=== PATIENT | female | born 1990 | race Caucasian/White ===

== ENCOUNTER 2022-08-08 08:54 | Outpatient (OUT) | payer BC, SELFPAY ==
[2022-08-08 09:41] LABS: Alanine Aminotransferase 26 U/L (14-59); Albumin Level 3.6 g/dL (3.4-5.0); Alkaline Phosphatase 96 U/L (46-116); Aspartate Amino Transferase 18 U/L (15-37); Bilirubin Direct 0.2 mg/dL (0.0-0.2); Bilirubin Total 0.8 mg/dL (0.2-1.0); Globulin 3.6 g/dL; Total Protein 7.2 g/dL (6.4-8.2)
== END 2022-08-08 08:55 ==
LOC: LAB 09:00
PROVIDERS: PCP Nurse Practitioner; Visit Provider Nurse Practitioner
DX: R94.5 Abnormal results of liver function studies (principal)
CPT/HCPCS: 36415; 80076

== ENCOUNTER 2022-10-05 07:54 | Outpatient (OUT) | payer BC, SELFPAY ==
--- NOTE | 2022-10-05 08:03 | MM_ITS ---
Patient: ZOE GROVE Exam Date: 10/05/2022 : 1990 Gender:F Ordering : Non-Staff Physician Admission #: [id number] Family : GERMANIA Taylor [employer] Order #: [id number] CLICK HERE TO VIEW EXAM RADIOLOGY REPORT PROCEDURE: MM TOMOSYNTHESIS DIAGNOSTIC BI, 10/05/2022, 08:06 US BREAST LT LIMITED, 10/05/2022, 09:03 COMPARISON: None. INDICATIONS: Breast Lump N83.21 Calculator Name NCI Breast Cancer Risk Assessment Tool 5 Year Breast Cancer Risk Not Applicable. Lifetime Breast Cancer Risk Not Applicable. Personal Breast Cancer No Personal Ovarian Cancer No Treatments None Family Cancers None LOCATION: [facility] BREAST COMPOSITION: Scattered areas fibroglandular density. FINDINGS: DIAGNOSTIC CATEGORY 1--NEGATIVE. RIGHT BREAST: No significant suspicious finding. LEFT BREAST: Skin surface marker localizes patient's palpable lump to the posterior upper-outer quadrant. No underlying mammographic abnormality. Ultrasound evaluation demonstrates normal appearing fibroglandular tissue. RECOMMENDATIONS: CLINICAL EVALUATION. PLEASE NOTE: A NORMAL MAMMOGRAM DOES NOT EXCLUDE THE POSSIBILITY OF BREAST CANCER. A CLINICALLY SUSPICIOUS PALPABLE LUMP SHOULD BE BIOPSIED. Dictated by: Shayan Matute M.D. on 10/05/2022 at 11:50 Approved by: Shayan Matute M.D. on 10/05/2022 at 11:57
== END 2022-10-05 07:55 | disposition home or self-care (01) ==
LOC: MAMMO 07:54
PROVIDERS: PCP Nurse Practitioner
DX: N63.21 Unspecified lump in the left breast, upper outer quadrant (principal)
CPT/HCPCS: 76642; 77066; G0279

== ENCOUNTER 2022-11-22 07:50 | Emergency (ER) | payer BC, SELFPAY ==
[2022-11-22] VITALS (19 sets, daily range): BP systolic 96–171; BP diastolic 59–103; PULSE 62–88; RESP 17–43; TEMP 36.4; O2SAT 96–100; BMI 42.2
--- NOTE | 2022-11-22 08:10 | ECG_ITS ---
The [facility] Test Date: 2022-11-22 Pat Name: ZOE GROVE Department: Room: - Gender: Female [employer]: : 1990 Requested By: CAROLINE MANCILLA Order Number: [id number] Reading MD: LAKISHA ALARCON Measurements Intervals [place] Rate: 69 P: 45 WV: 136 QRS: 81 QRSD: 96 T: 38 QT: 386 QTc: 404 Interpretive Statements 1100 Sinus rhythm 9110 normal ECG No previous ECG available for comparison Electronically Signed On 11-23-2022 6:54:44 EDT by LAKISHA ALARCON
--- NOTE | 2022-11-22 08:10 | XR_ITS ---
The [address] [address] Patient Name: ZOE GROVE MRN: [id number] date: 1990 Sex: F Assigned Patient Location: ER Current Patient Location: ER Accession/Order Number: [id number] Exam Date: 11/22/2022 08:20 Report Date: 11/22/2022 08:51 At the request of: BRAYDEN CH Procedure: XR chest 2V EXAM: Chest x-ray HISTORY: . cp . COMPARISON: None. TECHNIQUE: Frontal and lateral chest FINDINGS: Heart and vascularity are unremarkable. Lungs are free of focal infiltrates. No acute bony abnormality is appreciated. EKG leads overlie the chest. XR/XR chest 2V IMPRESSION: No acute heart or lung disease identified. Electronically authenticated by: JORGE LUIS FLORES Date: 11/22/2022 08:51
--- NOTE | 2022-11-22 08:11 | ED_ITS ---
HPI - General Adult General Chief complaint: Chest Pain Stated complaint: CHEST PAIN Time Seen by Provider: 11/22/22 08:10 Mode of arrival: walk-in History of Present Illness HPI narrative: Patient is a 32-year-old female who is presenting to the Emergency Room with multiple complaints and concerns. Patient has a neurology appointment in 2 weeks, patient has intermittent lightheaded, dizziness, and vertigo. Patient is on acetazolamide to help with normal pressure hydrocephalus. Patient had a spinal tap approximately one year ago, that was last time she any type of imaging of the brain. Patient has a trace tightness. Patient has mild nausea, no vomiting, no diarrhea. Patient has intermittent upper back pain. Patient has no vision or hearing changes. Patient was recommended to come to the Emergency Room by her nurse practitioner for evaluation. No other acute complaints at this time. Patient drove here. 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 No travel. . All systems are negative except as noted/marked. All systems reviewed and otherwise negative. . Nurses note and vital signs reviewed and patient is not hypoxic. General: The patient appears well and in no apparent distress. Patient is resting comfortably on cart. Patient is not toxic, lethargic, or listless Skin: Warm, dry, no pallor noted. There is no rash noted. No petechiae, purpura. Head: Normocephalic, atraumatic, no midline or paracervical tenderness to palpation. Full range of motion of cervical spinal no difficulty. Eye: Normal conjunctiva, no drainage, EOMI. PERRL Ears, Nose, Mouth, and Throat: oral mucosa is moist. Nares patent. Mouth without vesicles. Cardiovascular: Regular Rate and Rhythm, no murmur, gallop, rub Respiratory: Patient is in no distress, no accessory muscle use, lungs are clear to auscultation, no wheezing, rales or rhonchi Back: non-tender, no CVA tenderness bilaterally to percussion. No CT LS midline pain GI: soft, obese, no tenderness to palpation, no masses appreciated. No rebound, guarding, or rigidity noted. No flank pain bilateral, No distention Musculoskeletal: Patient has full range of motion of all of the extremities, no motor, sensory, or focal neurological deficits Neurological: A&O x3, normal speech Psychiatric: Cooperative Related Data Home Medications Medication Instructions Recorded Confirmed acetazolamide 250 mg tablet 250 mg PO QDAY 11/22/22 11/22/22 Allergies Allergy/AdvReac Type Severity Reaction Status Date / Time No Known Drug Allergies Allergy Verified 11/22/22 07:55 PFSH PFS Social History Smoking status: Never smoker Exam Constitutional Vital Signs, click to edit/add: Last Vital Signs Temp 97.6 F 11/22/22 07:55 Pulse 70 11/22/22 08:15 Resp 18 11/22/22 07:55 BP 115/59 11/22/22 08:15 Pulse Ox 100 11/22/22 07:55 Course Vital Signs Vital signs: Vital Signs Temperature 97.6 F 11/22/22 07:55 Pulse Rate 70 11/22/22 07:55 Respiratory Rate 18 11/22/22 07:55 Blood Pressure 115/59 11/22/22 07:55 Pulse Oximetry 100 11/22/22 07:55 Temperature 97.6 F 11/22/22 07:55 Pulse Rate 70 11/22/22 08:15 Respiratory Rate 18 11/22/22 07:55 Blood Pressure 115/59 11/22/22 08:15 Pulse Oximetry 100 11/22/22 07:55 Medical Decision Making MDM Narrative Medical decision making narrative: patient CT of the brain shows no signs of hydrocephalus. Patient's urine, labwork shows no significant findings. Patient's lightheaded and dizziness and headache have completely resolved.Patient's headache was not the worse headache of her life, not sudden onset, not thunderclap in nature. patient has a follow-up appointment with neurology in 2 weeks, she'll follow up with her PCP as well. Patient is sent home with a prescription for Antivert to use as needed. No questions at discharge Lab Data Lab results reviewed: Yes I reviewed the patient's lab results Labs: Lab Results 11/22/22 11/22/22 Range/Units 08:08 09:05 WBC 7.7 (4.0-11.0) 10^3/uL RBC 4.83 (4.20-5.40) 10^6/uL Hgb 15.2 (12.0-16.0) g/dL Hct 42.7 (36.0-48.0) % MCV 88.4 (81.0-99.0) fL MCH 31.5 (26.7-34.0) pg MCHC 35.6 H (29.9-35.2) g/dL RDW 12.0 (11.0-15.0) % Plt Count 320 (150-450) 10^3/uL MPV 9.8 (9.5-13.5) fL Neut % (Auto) 63.4 (43.0-75.0) % Lymph % (Auto) 28.2 (20.5-60.0) % [place] % (Auto) 5.2 (1.7-12.0) % Eos % (Auto) 2.3 (0.9-7.0) % Baso % (Auto) 0.5 (0.2-2.0) % Neut # (Auto) 4.9 (1.4-6.5) 10^3/uL Lymph # (Auto) 2.2 (1.2-3.8) 10^3/uL [place] # (Auto) 0.4 (0.3-0.8) 10^3/uL Eos # (Auto) 0.2 (0.0-0.7) 10^3/uL Baso # (Auto) 0.0 (0.0-0.1) 10^3/uL Abs Immat Gran (auto) 0.03 (0.00-0.03) 10^3/uL Imm/Tot Granulo (auto) 0.4 (0.0-0.5) % Sodium 141 (136-145) mmol/L Potassium 3.7 (3.5-5.1) mmol/L Chloride 106 (98-107) mmol/L Carbon Dioxide 21.9 (21.0-32.0) mmol/L Anion Gap 16.8 BUN 20.0 H (7.0-18.0) mg/dL Creatinine 0.79 (0.55-1.02) mg/dL Est GFR ( Amer) >60 (>=60) Est GFR (Non-Af Amer) >60 (>=60) BUN/Creatinine Ratio 25.3 Glucose 108 H (74-106) mg/dL Calcium 8.9 (8.5-10.1) mg/dL Total Bilirubin 0.7 (0.2-1.0) mg/dL AST 20 (15-37) U/L ALT 24 (14-59) U/L Alkaline Phosphatase 96 (46-116) U/L Troponin I High Sens <4.0 L (4.0-51.3) pg/mL Total Protein 7.3 (6.4-8.2) g/dL Albumin 3.8 (3.4-5.0) g/dL Globulin 3.5 g/dL Albumin/Globulin Ratio 1.1 Lipase 100.0 (73.0-393.0) U/L Urine Color Lt. yellow (YELLOW) Urine Clarity Slightly cloudy A (CLEAR) Urine pH 7.5 (5.0-9.0) Ur Specific [place] 1.010 (1.005-1.025) Urine Protein Negative (NEG/TRACE) mg/dL Urine Glucose (UA) Negative (NEGATIVE) mg/dL Urine Ketones Negative (NEGATIVE) mg/dL Urine Occult Blood Negative (NEGATIVE) Urine Nitrite Negative (NEGATIVE) Urine Bilirubin Negative (NEGATIVE) Urine Urobilinogen 0.2 (0.2-1.0) EU/dL Ur Leukocyte Esterase Negative (NEGATIVE) Urine RBC None seen (0-2) #/HPF Urine WBC 0-2 A (NONE SEEN) #/HPF Ur Squamous Epith Cells Moderate A (NONE/RARE) #/LPF Urine Crystals None seen (None Seen) #/HPF Amorphous Sediment Few Urine Bacteria None seen (NONE SEEN) #/HPF Urine Casts None seen (NONE SEEN) #/LPF Urine Mucus None seen (NONE SEEN) Ur Culture Indicated? No ECG Data Attestation: I personally reviewed and interpreted this ECG as follows: (EKG interpretation. Normal sinus rhythm at 69 beats a minute. Normal axis deviation. No acute ST elevation, no acute ectopy. Q waves throughout, QTC of 404.) Discharge Plan Discharge Chief Complaint: Chest Pain Clinical Impression: Headache, Atypical chest pain, Vertigo, Orthostatic dizziness Patient Disposition: Home, Self-Care Prescriptions / Home Meds: No Action acetazolamide 250 mg tablet 250 mg PO QDAY Instructions: Chest Pain (ED), Vertigo (ED), Acute Headache (ED), Lightheadedness (ED), Dizziness (ED) Additional Instructions: continue to increase fluids like you have then. Use Antivert as needed to help with vertigo A copy of your CAT scan report of ear brain has been given 2, no significant signs of hydrocephalus. Follow-up with neurology in 2 weeks, follow-up with PCP as well. Stand Alone Forms: Work/School Release, Portal Instructions Referrals: Inga Taylor [Primary Care Provider] - 1 week
[2022-11-22] MEDS: ONDANSETRON PF 4 MG/2 ML VIAL IV (08:20)
[2022-11-22] MEDS: 0.9 % SODIUM CHLORIDE 1,000 ML 1000 ML IV (08:23)
[2022-11-22 08:24] LABS: Basophils Percent Auto 0.5 % (0.2-2.0); Eosinophils Absolute Auto 0.2 10^3/uL (0.0-0.7); Eosinophils Percent Auto 2.3 % (0.9-7.0); Hematocrit 42.7 % (36.0-48.0); Hemoglobin 15.2 g/dL (12.0-16.0); Immature Granulocytes Abs Auto 0.03 10^3/uL (0.00-0.03); Immature Granulocytes Pct Auto 0.4 % (0.0-0.5); Lymphocytes Absolute Auto 2.2 10^3/uL (1.2-3.8); Lymphocytes Percent Auto 28.2 % (20.5-60.0); Mean Corpuscular HGB Conc 35.6 g/dL (29.9-35.2); Mean Corpuscular Hemoglobin 31.5 pg (26.7-34.0); Mean Corpuscular Volume 88.4 fL (81.0-99.0); Mean Platelet Volume 9.8 fL (9.5-13.5); Monocytes Absolute Auto 0.4 10^3/uL (0.3-0.8); Monocytes Percent Auto 5.2 % (1.7-12.0); Neutrophils Absolute Auto 4.9 10^3/uL (1.4-6.5); Neutrophils Percent Auto 63.4 % (43.0-75.0); Platelet Count 320 10^3/uL (150-450); Red Blood Count 4.83 10^6/uL (4.20-5.40); White Blood Count 7.7 10^3/uL (4.0-11.0)
[2022-11-22 08:35] LABS: Alanine Aminotransferase 24 U/L (14-59); Albumin Globulin Ratio 1.1; Albumin Level 3.8 g/dL (3.4-5.0); Alkaline Phosphatase 96 U/L (46-116); Anion Gap 16.8; Aspartate Amino Transferase 20 U/L (15-37); BUN Creatinine Ratio 25.3; Bilirubin Total 0.7 mg/dL (0.2-1.0); Calcium 8.9 mg/dL (8.5-10.1); Carbon Dioxide 21.9 mmol/L (21.0-32.0); Chloride 106 mmol/L (98-107); Estimated GFR (African America >60 (>=60); Estimated GFR (Non-African Ame >60 (>=60); Globulin 3.5 g/dL; Glucose 108 mg/dL (74-106); Potassium 3.7 mmol/L (3.5-5.1); Sodium 141 mmol/L (136-145); Total Protein 7.3 g/dL (6.4-8.2); Troponin I High Sensitivity <4.0 pg/mL (4.0-51.3)
[2022-11-22] MEDS: MECLIZINE HCL 12.5 MG TABLET 25 MG PO (08:38)
[2022-11-22] MEDS: ASPIRIN 81 MG TAB.CHEW 162 MG PO (08:38)
--- NOTE | 2022-11-22 09:05 | CT_ITS ---
The [address] [address] Patient Name: ZOE GROVE MRN: [id number] date: 1990 Sex: F Assigned Patient Location: ER Current Patient Location: ER Accession/Order Number: [id number] Exam Date: 11/22/2022 09:00 Report Date: 11/22/2022 09:17 At the request of: BRAYDEN CH Procedure: CT head/brain wo con EXAM: CT head/brain wo con HISTORY: normal pressure hydrocephalus, vertigo COMPARISON: None. TECHNIQUE: Axial noncontrast CT imaging of the head was performed with coronal and sagittal reformats. FINDINGS: Calvarium/skull base: No evidence of acute fracture or destructive lesion. Mastoids and middle ears demonstrate no substantial mucosal disease. Paranasal sinuses: No air fluid levels. Brain: No acute intracranial hemorrhage. No acute large vascular territory infarct. No mass lesion or mass effect. No hydrocephalus. CT/CT head/brain wo con IMPRESSION: 1. No acute intracranial process. 2. There is specifically no hydrocephalus seen. Please note normal pressure hydrocephalus would be atypical in this age group. Recommend correlation with clinical history. Electronically authenticated by: DONALD PEARCE Date: 11/22/2022 09:17
[2022-11-22 09:20] LABS: Bilirubin Urine NEGATIVE (NEGATIVE); Blood Urine NEGATIVE (NEGATIVE); Color Urine LT. YELLOW (YELLOW); Glucose Urine UA NEGATIVE (NEGATIVE); Ketones Urine NEGATIVE (NEGATIVE); Leukocyte Esterase Urine NEGATIVE (NEGATIVE); Nitrite Urine NEGATIVE (NEGATIVE); Protein Urine NEGATIVE (NEG/TRACE); Urobilinogen Urine 0.2 EU/dL (0.2-1.0); pH Urine 7.5 (5.0-9.0)
[2022-11-22 09:25] LABS: Clarity Urine SLIGHTLY CLOUDY (CLEAR)
[2022-11-22 09:27] LABS: Bacteria Urine NONE SEEN #/HPF (NONE SEEN); Crystals Seen? None Seen #/HPF (None Seen); Mucus Urine NONE SEEN (NONE SEEN); RBC Urine NONE SEEN #/HPF (0-2); Squamous Epithelial Cell Urine MODERATE #/LPF (NONE/RARE); WBC Urine 0-2 #/HPF (NONE SEEN)
[2022-11-22 09:28] LABS: Amorphous Sediment Urine FEW; Cast Seen? NONE SEEN #/LPF (NONE SEEN); Urine Culture Indicated NO
== END 2022-11-22 09:52 | disposition home or self-care (01) ==
PROVIDERS: Emergency Provider Emergency Medicine; PCP Nurse Practitioner
DX: R42 Dizziness and giddiness (principal); R51.9 Headache, unspecified; R07.89 Other chest pain
CPT/HCPCS: 36415; 70450; 71046; 80053; 81001; 83690; 83880; 84484; 85025; 85610; 93005; 96374; 99285

== ENCOUNTER 2022-12-14 16:09 | Outpatient (OUT) | payer BC, SELFPAY ==
[2022-12-14 16:40] LABS: Estimated Average Glucose 97 mg/dL
== END 2022-12-14 16:10 | disposition home or self-care (01) ==
LOC: LAB 16:10
PROVIDERS: PCP Nurse Practitioner; Visit Provider Nurse Practitioner
DX: R73.09 Other abnormal glucose (principal)
CPT/HCPCS: 36415; 83036

== ENCOUNTER 2023-04-18 07:58 | Outpatient (OUT) | payer BC, SELFPAY ==
--- OUTSIDE RECORDS SUMMARY | 2023-04-18 08:04 | XMS_ITS | CCD ---
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 Representative Name Role Phone SELF, REFERRED Referring Unavailable UNKNOWN, PHYSICIAN Primary Care Unavailable ROBIN HUGHES Attending Unavailable ROBIN HUGHES Admitting Unavailable MD Procedure Practitioner Unavailab LATRICIA Recinos Surgeon Unavailable MD Procedure Practitioner Unavailab ROBIN Zamora Surgeon Unavailable DR ARIEL LARKIN Admitting Unavailable CHAYA, DR GEORGE Consulting Unavailable DR ARIEL LARKIN Attending Unavailable GERMANIA TAYLOR Primary Care Unavailable NOLAN MAE Consulting Unavailable STEVE BARTHOLOMEW Admitting Unavailable STEVE BARTHOLOMEW Consulting Unavailable STEVE BARTHOLOMEW Attending Unavailable GERMANIA TAYLOR Primary Care Unavailable Brandon TREE FARMER, Inga Unavailable Unallocated, [facility] Provider Primary Care Provider INGA TAYLOR Attending Unavailable Allergies Allergy Classification Reported Allergen(s) Allergy Type Date of Onset Reaction(s) Facility (1 source) Honey Drug allergy (disorder) 11-19-2015 [facility] (1 source) Penicillin Drug Allergy [facility] (3 sources) Honey Allergy to substance 08-16-2022 Anaphylaxis [facility] (3 sources) Penicillin G Drug Allergy 08-16-2022 [facility] (3 sources) Wound Dressing Adhesive Drug Allergy 08-16-2022 [facility] Medications Current Medications Medication Drug Class(es) Dates Sig (Normalized) Sig (Original) acetaZOLAMIDE 250 mg oral tablet (3 sources) Carbonic Anhydrase Inhibitor acetaZOLAMIDE (Diamox) 250 MG tablet 2 (two) times a day. 0 Active B Complex Vitamins (B COMPLEX 1 PO) (3 sources) B Complex Vitami ns (B COMPLEX 1 PO) B Complex 0 Active loratadine 10 mg oral tablet (3 sources) loratadine (Claritin) 10 MG tablet Claritin 0 Active metFORMIN hydrochloride 500 mg oral tablet (3 sources) Biguanide take 1 tablet by mouth at mealtime metFORMIN (Glucophage) 500 MG tablet Take 1 tablet by mouth in the morning. Take with meals. 0 Active tiZANidine 4 mg oral tablet (4 sources) Central alpha-2 Adrenergic Agonist Start: 04-10-2023 End: 04-25-2023 tiZANidine (Zanaflex) 4 MG tablet Indications: Paresthesia of right upper extremity Take 1 tablet (4 mg) by mouth as needed at bedtime for muscle spasms for up to 15 days May start with 1/2 pill, increase to 1 pill if necessary. May cause drowsiness 15 tablet 0 04/10/2023 04/25/2023 Active End: 04-10-2023 take 1 tablet by mouth every six hours as needed tiZANidine (Zanaflex) 4 MG tablet Take 4 mg by mouth every 6 (six) hours if needed for muscle spasms 0 04/10/2023 Discontinued (Reorder) Completed/Discontinued Medications Medication Drug Class(es) Dates Sig (Normalized) Sig (Original) methylPREDNISolone (3 sources) Corticosteroid Start: 08-16-2022 End: 04-10-2023 methylPREDNISolone (Medrol Dospak) 4 MG tablets Indications: Swelling of left index finger Follow schedule on package instructions 21 tablet 0 08/16/2022 04/10/2023 Discontinued (Therapy completed) Start: 08-16-2022 methylPREDNISo lone (Medrol Dospak) 4 MG tablets Indications: Swelling of left index finger Follow schedule on package instructions 21 tablet 0 08/16/2022 Active traZODone hydrochloride 50 mg oral tablet (3 sources) Serotonin Reuptake Inhibitor End: 04-10-2023 take 2 tablets by mouth at bedtime traZODone (Desyrel) 50 MG tablet Take 2 tablets by mouth at bedtime 0 04/10/2023 Discontinued (Therapy completed) triamcinolone acetonide 0.055 mg/actuat metered dose nasal spray (3 sources) Corticosteroid End: 04-10-2023 take 2 spray(s) nasal route in the morning triamcinolone (Nasacort) 55 MCG/ACT nasal inhaler Administer 2 sprays into each nostril in the morning. 0 04/10/2023 Discontinued (Therapy completed) Problems Problem Classification Problem Date Documented Da te Episodic/Chronic Abdominal pain (3 sources) Unspecified abdominal pain; Translations: [UNSPECIFIED ABDOMINAL PAIN] Onset: 03-26-2022 Episodic Calculus of urinary tract (1 source) Calculus of ureter; Translations: [CALCULUS OF URETER] Onset: 03-28-2022 Episodic Diabetes or abnormal glucose tolerance complicating ; childbirth; or the puerperium (2 sources) Gestational diabetes mellitus; Translations: [Gestational diabetes mellitus in , unspecified control] Onset: 04-10-2023 04-10-2023 Episodic Headache; including migraine (4 sources) Chronic migraine without aura, not intractable, without status migrainosus; Translations: [CHR MIGR W/O AURA NOT INTRCT W/O SM] Onset: 05-06-2021 Chronic Other endocrine disorders (2 sources) Polycystic ovary; Translations: [Polycystic ovarian syndrome] Onset: 04-10-2023 04-10-2023 Chronic Other nervous system disorders (4 sources) Paresthesia of right upper limb; Translations: [Paresthesia of skin] Onset: 04-10-2023 04-10-2023 Episodic Other nutritional; endocrine; and metabolic disorders (4 sources) Body mass index 40+ - severely obese; Translations: [Body mass index (BMI) 45.0-49.9, adult] Onset: 04-10-2023 04-10-2023 Chronic Results Test Name Value Interpretation Reference Range Facility CBC AUTO DIFFon 03-26-2022 BASO # 0.0 103/ul Normal 0.0-0.1 Comment on above: Performed By: #### C BC #### [facility] [address] [place] [address] Dr. María Sosa Basophils/100 WBC (Bld) 0.6 % Normal 0.2-2.0 Comment on above: Performed By: #### C BC #### [facility] [address] [place] [address] Dr. María Sosa EO # 0.2 103/ul Normal 0.0-0.7 [facility] Comment on above: Performed By: #### C BC #### [facility] [address] [place] [address] Dr. María Sosa Eosinophils/100 WBC (Bld) 2.9 % Normal 0.9-7.0 Comment on above: Performed By: #### C BC #### [facility] [address] [place] [address] Dr. María Sosa Erythrocyte distribution width (RBC) [Ratio] 12.1 % Normal 11.0-15.0 Comment on above: Performed By: #### C BC #### [facility] [address] [place] [address] Dr. María Sosa Hematocrit (Bld) [Volume fraction] 37.4 % Normal 36.0-48.0 Comment on above: Performed By: #### C BC #### [facility] [address] [place] [address] Dr. María Sosa Hemoglobin (Bld) [Mass/Vol] 13.9 g/dL Normal 12.0-16.0 [facility] Comment on above: Performed By: #### C BC #### [facility] [address] [place] [address] Dr. María Sosa IG # 0.01 10e3/ul Normal 0.00-0.03 [facility] Comment on above: Performed By: #### C BC #### [facility] [address] [place] [address] Dr. María Sosa IG % 0.2 % Normal 0.0-0.5 [facility] Comment on above: Performed By: #### C BC #### [facility] [address] [place] [address] Dr. María Sosa LYMPH # 2.0 103/ul Normal 1.2-3.8 [facility] Comment on above: Performed By: #### C BC #### [facility] [address] [place] [address] Dr. María Sosa Lymphocytes/100 WBC (Bld) 30.8 % Normal 20.5-60.0 Comment on above: Performed By: #### C BC #### [facility] [address] [place] [address] Dr. María Sosa MANUAL DIFF REQ NO Normal [facility] Comment on above: Performed By: #### C BC #### [facility] [address] [place] [address] Dr. María Sosa MCH (RBC) [Entitic mass] 30.3 pg Normal 26.7-34.0 Comment on above: Performed By: #### C BC #### [facility] [address] [place] [address] Dr. María Sosa MCHC (RBC) [Mass/Vol] 37.2 g/dL Critically high 29.9-35.2 Comment on above: Performed By: #### C BC #### [facility] [address] [place] [address] Dr. María Sosa MCV (RBC) [Entitic vol] 81.7 fL Normal 81.0-99.0 Comment on above: Performed By: #### C BC #### [facility] [address] [place] [address] Dr. María Sosa MONO # 0.4 103/ul Normal 0.3-0.8 Comment on above: Performed By: #### C BC #### [facility] [address] [place] [address] Dr. María Sosa Monocytes/100 WBC (Bld) 5.3 % Normal 1.7-12.0 Comment on above: Performed By: #### C BC #### [facility] [address] [place] [address] Dr. María Sosa NEUT # 3.9 103/ul Normal 1.4-6.5 Comment on above: Performed By: #### C BC #### [facility] [address] [place] [address] Dr. María Sosa Neutrophils/100 WBC (Bld) 60.2 % Normal 43.0-75.0 Comment on above: Performed By: #### C BC #### [facility] [address] [address] [address] María Sosa Platelet mean volume (Bld) [Entitic vol] 9.2 fL Critically low 9.5-13.5 Comment on above: Performed By: #### C BC #### [facility] [address] [address] [address] María Sosa PLT 293 103/ul Normal 150-450 [facility] Comment on above: Performed By: #### C BC #### [facility] [address] [address] [address] María Sosa RBC 4.58 106/ul Normal 4.20-5.40 Comment on above: Performed By: #### C BC #### [facility] [address] [place] [address] Dr. María Sosa WBC 6.6 103/ul Normal 4.0-11.0 [facility] Comment on above: Performed By: #### C BC #### [facility] [address] [place] [address] Dr[address] María Sosa CT ABD/PELVIS WO CONon 03-26 CT ABD/PELVIS WO CON CLINICAL HISTORY: Left flank pain. Low back pain, urinary retention. EXAMINATION: Unenhanced CT scan of the abdomen and pelvis: 03/26/2022. COMPARISON: None. TECHNIQUE: 3 mm axial images from lung bases through ischial tuberosities without intravenous or oral contrast were obtained. Sagittal, coronal reconstructions were performed. CT dose reduction technique was used, including Automated Exposure Control. FINDINGS: The visualized lung bases, cardiac, posterior mediastinal structures seem normal. The heart size seems normal. CT ABDOMEN: The liver, spleen, gallbladder, pancreas, adrenal glands, kidneys appear normal. There is no hydronephrosis, nephrolithiasis or perinephric fat stranding. The abdominal aorta has normal caliber. There is no retroperitoneal or mesenteric adenopathy. The small and large bowel loops are of normal caliber. There is normal appendix. CT PELVIS: There are tubal occlusion devices involving the fallopian tubes as well as the corpora the uterus appropriately positioned. Uterus, ovaries appear normal. The bladder is normal. There is no definite ureterolithiasis. There are a few calcified phleboliths within the pelvis. I doubt these represent a distal ureteral calculi. However the calcified density on the left could represent a calculus at the left ureterovesicular junction measuring 4 mm. No significant hydronephrosis or hydroureter is seen. There is no pelvic adenopathy. There are no focal fluid collections. The visualized osseous structures seem normal. IMPRESSION: 1. 4 mm calculus at the left ureterovesical junction or a calcified phlebolith without significant hydroureter or hydronephrosis of the left kidney. Similar 3 mm density seen on the right without significant hydronephrosis or hydroureter on the right. 2. Normal appendix. 3. The ovaries are normal for CT examination. Electronically authenticated by: NOLAN MAE Date: 2022-03-26 10:12 Normal [facility] ER URINE PROFILEon 3 Bilirubin Ql (U) Negative Normal NEGATIVE [facility] Comment on above: Performed By: #### U MICRO, ERUR, PREGU #### [facility] [address] [place] [address] Dr. María Sosa Clarity (U) CLEAR Normal CLEAR Comment on above: Performed By: #### U MICRO, ERUR, PREGU #### [facility] [address] [place] [address] Dr. María Sosa Color (U) LT. YELLOW Normal YELLOW [facility] Comment on above: Performed By: #### U MICRO, ERUR, PREGU #### [facility] [address] [place] [address] Dr. María GRAMAJOAHJon A micrscopic examination will be performed if indicated. Normal [facility] Comment on above: Performed By: #### U MICRO, ERUR, PREGU #### [facility] [address] [place] [address] Dr. María Sosa Glucose Ql (U) Negative Normal NEGATIVE [facility] Comment on above: Performed By: #### U MICRO, ERUR, PREGU #### [facility] [address] [place] [address] Dr. María Sosa Hemoglobin Ql (U) TRACE-INTACT Abnormal NEGATIVE [facility] Comment on above: Performed By: #### U MICRO, ERUR, PREGU #### [facility] [address] [address] [address] María oSsa Ketones Ql (U) Negative Normal NEGATIVE [facility] Comment on above: Performed By: #### U MICRO, ERUR, PREGU #### [facility] [address] [place] [address] Dr. María Sosa LEUKOCYTES Negative Normal NEGATIVE Comment on above: Performed By: #### U MICRO, ERUR, PREGU #### [facility] [address] [place] [address] Dr. María Sosa Nitrite Ql (U) Negative Normal NEGATIVE [facility] Comment on above: Performed By: #### U MICRO, ERUR, PREGU #### [facility] [address] [place] [address] Dr. María Sosa pH (U) 6.0 [pH] Normal 5-9 Comment on above: Performed By: #### U MICRO, ERUR, PREGU #### [facility] [address] [place] [address] Dr. María Sosa SPEC GRAVITY <=1.005 Abnormal 1.005-<=1.025 [facility] Comment on above: Performed By: #### U MICRO, ERUR, PREGU #### [facility] [address] [place] [address] Dr. María Sosa UA PROTEIN Negative Normal NEGATIVE/ TRACE Comment on above: Performed By: #### U MICRO, ERUR, PREGU #### [facility] [address] [place] [address] Dr. María Sosa UR MICRO IND INDICATED Normal Comment on above: Performed By: #### U MICRO, ERUR, PREGU #### [facility] [address] [place] [address] Dr. María Sosa Urobilinogen Qn (U) 0.2 {[place]and[place]'U}/dL Normal 0.2 - 1.0 Comment on above: Performed By: #### U MICRO, ERUR, PREGU #### [facility] [address] [place] [address] Dr. María Sosa URon 03-26-2022 , QUAL Negative Normal NEGATIVE [facility] Comment on above: Performed By: #### U MICRO, ERUR, PREGU #### [facility] [address] [place] [address] Dr. María Sosa PROF CHEM 8 (BAS METB)on Anion gap [Moles/Vol] 15.5 mmol/L Normal Comment on above: Performed By: #### B MP #### [facility] [address] [place] [address] Dr. María Sosa Calcium [Mass/Vol] 8.6 mg/dL Normal 8.5-10.1 [facility] Comment on above: Performed By: #### B MP #### [facility] [address] [place] [address] Dr. María Sosa Chloride [Moles/Vol] 107 mmol/L Normal 98-107 [facility] Comment on above: Performed By: #### B MP #### [facility] [address] [place] [address] Dr. María Sosa CO2 [Moles/Vol] 24.1 mmol/L Normal 21.0-32.0 [facility] Comment on above: Performed By: #### B MP #### [facility] [address] [address] [address] María Sosa Creatinine [Mass/Vol] 0.67 mg/dL Normal 0.55-1.02 [facility] Comment on above: Performed By: #### B MP #### [facility] [address] [place] [address] Dr. María Sosa EGFR-AF BOLIVIAN >60 Normal >=60 [facility] Comment on above: Performed By: #### B MP #### [facility] [address] [place] [address] Dr. María Sosa EGFR-NON AF BOLIVIAN >60 Normal >=60 Comment on above: Performed By: #### B MP #### [facility] [address] [address] [address] María Sosa Glucose [Mass/Vol] 107 mg/dL Critically high 74-106 [facility] Comment on above: Performed By: #### B MP #### [facility] [address] [address] [address] María Sosa Potassium [Moles/Vol] 3.6 mmol/L Normal 3.5-5.1 Comment on above: Performed By: #### B MP #### [facility] [address] [address] [address] María Sosa Sodium [Moles/Vol] 143 mmol/L Normal 136-145 [facility] Comment on above: Performed By: #### B MP #### [facility] [address] [address] [address] María Sosa Urea nitrogen [Mass/Vol] 11.0 mg/dL Normal 7.0-18.0 Comment on above: Performed By: #### B MP #### [facility] [address] [address] [address] María Sosa Urea nitrogen/Creatinin e [Mass ratio] 16.4 mg/mg Normal Comment on above: Performed By: #### B MP #### [facility] [address] [address] [address] María Sosa URINE MICROSCOPIC ONLYon BACTERIA NONE SEEN Normal NONE SEEN Comment on above: Performed By: #### U MICRO, ERUR, PREGU #### [facility] [address] [address] [address] María Sosa Bacteria identified Cx Nom (U) NOT INDICATED Normal Comment on above: Performed By: #### U MICRO, ERUR, PREGU #### [facility] [address] [address] [address] María Sosa CAST NONE SEEN Normal NONE SEEN Comment on above: Performed By: #### U MICRO, ERUR, PREGU #### [facility] [address] [address] [address] María Sosa Crystals LM Nom (Urine sed) NONE SEEN Normal NONE SEEN [facility] Comment on above: Performed By: #### U MICRO, ERUR, PREGU #### [facility] [address] [address] [address] María Sosa Epithelial cells LM Ql (Urine sed) FEW Abnormal NONE SEEN /RARE [facility] Comment on above: Performed By: #### U MICRO, ERUR, PREGU #### [facility] [address] [place] [address] Dr. María Sosa MUCOUS TRACE Abnormal NONE SEEN [facility] Comment on above: Performed By: #### U MICRO, ERUR, PREGU #### [facility] [address] [place] [address] Dr. María Sosa RBC 2-5 Abnormal 0-2 [facility] Comment on above: Performed By: #### U MICRO, ERUR, PREGU #### [facility] [address] [place] [address] Dr. María Sosa WBC NONE SEEN Normal NONE SEEN [facility] Comment on above: Performed By: #### U MICRO, ERUR, PREGU #### [facility] [address] [place] [address] Dr. María Sosa CT Abdomen/Pelvis w/ Contras ton 03-24-2022 CT Abdomen/Pelvis w/ Contrast COMPARISON: None TECHNIQUE: Contiguous axial CT sections of the abdomen and pelvis were obtained after IV contrast administration of 100 mL of Iopamidol, Isovue-300. Sagittal and coronal reformats have been obtained. All CT scans at this facility use dose modulation, iterative reconstruction, and/or weight based dosing when appropriate to reduce radiation dose to as low as reasonably achievable. FINDINGS Lung bases:Visualized lung bases show no significant pathology Liver: The liver is normal in size and enhancement. There are no focal solid or cystic lesions. There is no intra or extrahepatic bile duct dilatation. Gallbladder: No calcified gallstones. Normal gallbladder wall. No pericholecystic fluid. Spleen: There are no focal lesions or calcifications in the spleen. There is no splenomegaly Pancreas: The pancreas is normal in size and attenuation without focal lesions or dilatation of the pancreatic duct. Adrenal glands are negative. Kidneys: There are no solid renal lesions. There are prompt bilateral nephrograms after IV contrast administration with prompt excretion into nondilated collecting systems. There is no hydroureter. Bowel: There is no bowel dilatation or evidence of diverticulitis. Appendix: The appendix is unremarkable. Nodes: No lymphadenopathy. Aorta: There is no abdominal aortic aneurysm. Peritoneum: No free fluid or free air. Pelvis: The uterus is within normal limits. There are clips in pelvis consistent with previous tubal ligation. The urinary bladder is within normal limits. Abdominal wall: The abdominal wall is intact. Bones :There are no acute osseous changes. Soft tissues: The soft tissues are unremarkable. IMPRESSION: No acute intra-abdominal changes. Report reported and signed by ANKSUH MALLOY on 03/24/2022 [address] [facility] Specialist XR Knee Complete Left*on XR Knee Complete Left* COMPARISON: NONE. 4 views LEFT KNEE FINDINGS: There are no lytic or sclerotic bone lesions. There is no acute fracture or subluxation. The joint spaces are preserved. The patella is within normal limits. The soft tissues are within normal limits, there are no radiopaque foreign bodies.. IMPRESSION: There are no acute osseous changes. Report reported and signed by ANKUSH MALLOY on 11/23/2021 [address] [facility] Specialist PAP [id number] 07-08-2021 Cytology report Cyto stain Doc (Cvx/Vag) Note Invalid Interpretation Code [facility] Comment on above: Result Comment: TEST S RESULT FLAG UNITS REF RANGE LAB Clinician Provided Cytology Information Source.............Cervix No. of containers..01 ThinPrep Vial DIAGNOSIS: 01 NEGATIVE FOR INTRAEPITHELIAL LESION OR MALIGNANCY. Specimen adequacy: 01 Satisfactory for evaluation. Endocervical and/or squamous metaplastic cells (endocervical component) are present. Performed by: 01 Navin Whitfield Assistant Professor Of Physics (ASCP) . 01 Note: Note 01 The Pap smear is a screening test designed to aid in the detection of premalignant and malignant conditions of the uterine cervix. It is not a diagnostic procedure and should not be used as the sole means of detecting cervical cancer. Both false-positive and false-negative reports do occur. Test Methodology: Note 01 This liquid based ThinPrep(R) pap test was screened with the use of an image guided system. FLAG LEGEND: L-Low Normal,H-High Normal,LL-Alert Low,HH-Alert High <-Panic Low,>-Panic High,A-Abnormal,AA-Critical Abnormal Performed at: [address] [place] [address] Noelle Platt MD, Performed By: #### 1 [id number] #### [facility] [address] [place] [id number] HPV 16+18+31+33+35+39+ 45+51+52+56+58+59+ 66+68 DNA Probe+sig amp Ql (Cvx) Negative Invalid Interpretation Code Negative [facility] Comment on above: Result Comment: This nucleic acid amplification test detects fourteen high-risk HPV types (16,18,31,33,35,39,45,51,52,56,58,59,66,68) without differentiation. Performed at: [facility] [id number] MD Giulia Drake Performed at: =[address] [id number] MD Giulia Drake Performed By: #### 1 [id number] #### [facility] [address] [place] [address] Coding Summary.on 07-07-2021 Coding Summary. CD:[id number] G h0bWw+PGhlYWQ+ZD0WAFU rU64wnBJjbJ3DV9vOQC3N VQXNYTRXGK1BMF4msGJ4A YrgM6HymfZd SouhgHWdQI81ULs3FQZ3a PzpFXttkU8ksRJqQ4u5Zu LtSP81dC48WAcyBOPoUrV 3LjZpbjsgbWFy A0yvWkPviTSiBrw+PHRhY mxlIHdpZHRoPScxMDAlJy OqhObrMO8vNq8jZNWsIOM vbGxhcHNlOiBj e4awSYRqUXhrJR9kgLjlP 5DadQP0AAKdr1h0Hn48dL I+WQMxVGQ9lTjyFPuej33 2MfCap1oeWCO5 mWSbGVlqLJN7B83zp2L1H BPuDRVtUJL7dVS3pP1qrC yenupkX1GksSWmIpG6KWB 3iJJesX3jlTwg xnzpnQ6aMjr+H23SWP9NA NMOYJ0MCwc7F0YsKkpohJ I+YF31GDBpHQ97sEEkrOR jx7layCh2RjKg MNOqACI0lCnfKIgvl8VdL SFsL30goTXvl8Z7KPSskD arxXQtPxBiaKO8pW6hLOc uwsapl8xnhdyo Pflae5zade39eA44D29jS QwpHTJoXAR9BQInEMJusU wbsd0wtN1wLf3+VUaao3x qt7xntKl2BwYh GUDgiqOsjZmsPVT9j5EzD j87W7NsgMsjw8AiXtb4tw 53qOTyj6I8aYX4YUhzVLX veK0vRYceBuD9 GTUeFdBnrG52vEKrQOhoT s1yxUeqsQslIS9qMFTqaz lzAMLqeM4mASRepKQfqSg xIT5bFBSexefo k326QpBbXEN2DLMqqUArB 1ZmfI5xDmJwCUSmUSZaD0 NwfAJwDFodL013BFglEkF 3DJGidhKlP8Lj NLGwiDmzRgU0z3J9Hu0Pt 0HpaerwLIB1YJbqEXQ7Kn IsFaFiDcG4C5WvAlz6UZU zyAmkQD5gI8Om GOYqdygbiyltyGX3QLUrB DDcgU69nWPxUUqaNl9zd2 Y5p055CNReTNBpqT72Ts9 udDogMTBwdCBU iF7grgqph1padnctFfOtM QJvUGq9WYc4MXKybLkkHj VcHMJ8DcF1ECU4gVGsoE2 pqEnfllsbwI7u Oyc+J81gbO8dEAF8AQX6l lyhROLrinNeUQ13VE86Y6 RyPjwvdGFibGU+PGRpdiB tsDsuYD3pNdMl b0beb1SoBQmzJ1QhUZNqX XfdAuv1QUQxQLB6cHX3sN 5xJCXjTSrtl6V8fED1M3B byrZxqq2cs7ej OKFiJPzoJ51xsBDyi0H4X JLcfMZ7DRQehNbmKwAyqH 93Oyc+CJNmbBunr3ZxPlu mq7eap2xmbXt7 KiOwNWLdpuBcoJexXVJ9w 9VwQl30K73cSFxpXDZuUZ YsKTWbPONmyPtctc3xlE6 wIi8+PGNvbCB3 hQJ3oT4fNOAeTcE8ZGutL 885AkPxoRFaSwddj8red4 qyhCu1DqIvBRAxyiQmcVm jCUM9b5ScZl61 B46zJVgsHYIrEIOhUCZoM PStdUsdnk8hlY1nOm6+PC 5wu4ifib69kS28bPL+PHR nASY7vOovLAza NLMrnG9oDWdyGfP8LKSnZ wStcG53qHJpOCrrTi4orE wwkCkyOU5pEEAaqexoj30 0DxVih8avTERj iNFcSGnjQXY9P19id4U6F DWrOCXfSAL0zUW1iV8tuG lnbjogbGVmdDsgdmVydGl wFQncBHklD544 IHRvcDsnPlBhdGllbnQgT jEhDQd8Q5JsQrj7FUAjcO pyPL9beGEbEQzbAx7lnDu rbGgvCO8mJQOv uezhz148RuZuv6cdARIsx JDmWKxzDQE0Y73hx9N7ZM EkSWKyXZC7zTB4kL7nuKx nbjogbGVmdDsg jsEfiXuwTNreBQecE535X HRvcDsnPkJpcnRoIERhdG A1AG95LC73dXIuh0I1pXL 7C1RoLXVvrhmw cdsorTZ4UNYoUUEdvO55K v1yeJydRq5yILLdRWJ7YF MwwLAiC6YucC0nTlKxXLM xDOOnX1XfdXYh VDcxC558GHckIhQ7MLFhe cImA8TpNQIprKanMyO6b4 B8Fq0SS6F8ZF26ME27oUH en6M7vDQ9I2Jp CHPdnxnalpxydDV7IIGcL OTxhG90Lj7hgHmvId0vIX TaLPJ1QPTkjNXiZ7FbsL2 yOiAjMDAwMDAw X9PjxBQkLFetA267SDjuU pA7CAXmypDmO3WoIVUheM spFlW2r1D7Nf1IVLx2FH6 6HB07uCGhc5R2 bTJ4G0XwXOGhsvhdgefji TS4BQAsDKKpoF01Ls7rfQ lbLa7oRMAoANJ6ILLhoTQ nD4LqnZ0eGkEz GQAiUPKzX5UyhFGjOCokJ 284ODdpIxJ5HMKltkBhO8 ZtQCGdnLnmSgY5q7A8On5 LXASwIJ54EDA8 vLL8HX43CO07J6BxQuxtj GFibGU+PHRhYmxlIHdpZH RoPScxMDAlJyBzdHlsZT0 pCy7sCHRyJFLs pAvhcPFfOxMgb0qhFFNpA QkcOX4bfLoaW5ZhdOB7GQ Tnj8l4Xh48M55tU0AkkJY +VBDtrUX3iNX4 jC6hCnIePkA7OGmrB363T xNzsXOlDgpwr1dck6xrcP b9HhL3DSGablWiwXxeDZB 8g7PvGo51E88m IHdpZHRoPSIxNSUiIHZhb Akihi6dcU4aMg8+PGNvbC F5kTL1dF3lSqHtIdM3VDl qV942XeNfoIEn Ojxxx5mfz4phtDe1AnArB QYrycMkaQeaIXO9y9BkPx 32I4HsxAujn0OrClb4pe1 3rHDki8A8aCY8 X0MsJKLobjhphODwbTjgL F1pHEKoefegFTEtoV7bOF HwF5n5VfEsAfQ7DOkjY6U btdH3UNPdnVFm OWrrPLI6C16wp2Y4SXSdS TEyYYD9lVH4fP0nnHxvfc ogbGVmdDsgdmVydGljYWw vRBnqJ374POHl fOjlAEUmnW1yTKFfjJJrf WlrFP0aWOQddjpjGomKYY lCVovdISKIEGSYCA41WM8 7eMNay4J6wMV9 K1CsTNCdvqkjkicinOS2I HHsTVXlhW05gJOySIfdHb 5db8K2p594ANYrCHUiyT0 5Xa9uaThhUJXs dYNDhC2iegnkf0bpajcbV mMpNARyVLh1GCq7XLSlqJ kaBoGbODT7BsT5NFC1sAG reE7paLowvuje cO7zVvw+RGRbKoUkYCk9Y TwvdGQ+HQJvRYD1xOyuTS ofKRHibM8zMSJuR7r7IuX uKdI9TXinS7Yp EVQeidlnOc96pD4yFrYzW kS4MQwxV3LtuhG0NZYofR HtPZycLZA2C49mn8Q9YPP qUGOlQEX3lEM1 sP9oiEzjpvlenMJgjFupe qWpvNdjOHrhVPwiR120IB RvcDsnPjMwIFllYXJzPC9 8TL95xBKcp0G0 rFA4F2KfQMSvjkxvqrhpw WI1KPTnANMugK88lROdPS lxOv2kb5L1z540TXGiCJV wkK75Ej7boCdy NBKwsMEYmZ9avggxp4jng vwtIoQpGBCeDPc8SOm8YX OltDpxSqDfMIR8VfZ1MJW 4wNIptY4tzMew yyvmkG5lHga+RmVtYWxlP F52FW75qVKxy6O6iDS2V7 LsUAQejalktkxxjZM5GSE nWFFvvA68oEWm KIffCm0uq9Q1r834SPAcE TWyvY94Mq2aeTefSPCbbC AQcM0linrok3qgfdcpOjH lXNRcPAb3ITx2 XQWnoLzgNrGnZJZ3IxR9V PM9cFMsrO7yoJaifntzfT 9wOyc+GCJcYZTsh0Jir0K rRE81EE91Z0Ax PjwvdGFibGU+PHRhYmxlI HdpZHRoPScxMDAlJyBzdH mzKA9mYq6iMBEgPYEtxKs lmPTmDmUwd5wm YWPlMStmEZ8ifKpzY1Jrf LN6HDZdf9n2Qx33C42rR0 JvdXA+BDQefRQ2hGJ8uT4 gEvEzQhP3EAha M148QvYixHDiEeurt9zwo 0ygeVr3PtVzUBEdzbXdzJ fgPJM9e2AfNc57K65nMUd pZHRoPSIyMCUi GVWnlSmhbz2hnI1nLz2+P XVlfBZ7xHC4rX7tXuQzNe A3EFztO400QlKbdVCuNcz gS98tX4YmiQJ+ JIMsHlv4RFOeiFklMO9eh HPxQCowMo2sPXU3MeKaAq TxPQfaH2PxFMNyrtexnqq kkWS0SSHzKGRz oG17Fj5pqTypRo7xOVNaX EI0GRCvoVMcU1FycE3eQq XvOEVwCJJvQ5MjdRGmQYx uA142TPoaSjL4 HCMbbkUpH7GgZZJtuUsvC wT5g8C3Dv7SwMcyiOZcZK 6jBnMsZWa5H1RnHib5AUB hsTnuRC4ifOKx LUhpYq5adQyiaIipEA9fR MSljypfd797YnHij7ymRE XesLLfYAjiUNO5Q59da1X 5PNShOJKxDYG3 xRM6yS6gtDdpmdujiONnd DsgdmVydGljYWwtYWxpZ2 74OVPdiKluVmCZGbi0N7I rIdc1JLTjfCiv AB0urVDxMJgqBg3dsYegj NghWZ4yKSBzsxwwi730Jc Vur7zvELQlyFDpHFxlGET 9S05ot4R5CUEq MRHkQII6iPT5wF4dfZpoj jogbGVmdDsgdmVydGljYW eiQFudR332QMTswXupZk6 BYbb4P9QjPts9 QLFmcEeiNW1dgDXiOFbyT b5hnNmexReqMD0vZZVyrr dlg783UyNql8gbOLHogOR dSVgbNOY8V59q t6J9IJGaITGhZTK8eMX8r B5prWyerifpiPMbzUthvz PoeIvvKZfbQFocW282CUN vcDsnPlBheWVy OjwvdGQ+DJ84ad79G2ZzT zrtKzg2WRTgBGY6zYA2uP 8vSBKaSCwan2V1eDT1E4Z qzfYmyt6yu4ip YXBz (more content not included)... Normal [facility] PAP [id number] 07-01-2021 Gynecological Body Site CERVIX Normal [facility] Comment on above: Performed By: #### 1 [id number] #### [facility] Laboratory [address] [place] [address] Physician Orderon 07-01-2021 Physician Order [id number]# 1.00CD:127 Normal [facility] Coding Summary.on 06-07-2021 Coding Summary. CD:[id number] G h0bWw+PGhlYWQ+HV7GGFD uJ89wxJDjaN2BU6lSBB5T YSRLDDTSQS1UPK6sgIW4R TrxX1QtsrTz TqhpoQPiBK84SRk4EAQ8m FclHNcbjZ2toDGjD9c5Vn ZhNO67jX79PYekSGKiXgI 3LjZpbjsgbWFy B0dfNkPgnKUlDxg+PHRhY mxlIHdpZHRoPScxMDAlJy XiuRtbTR7oLj7tIHOzWIR vbGxhcHNlOiBj h4mqPVIzOBskBA7moKycB 3CmkIF4LWKqx4v3Xy75kZ I+YFQjRSI1iEmqKUmbr25 6HkFob7bnBAB7 qBGtGTlbTMD6N55fx3V0Y PClUPGlIJN1zGX7yS4roJ whbdinP1VdxXNeTnF8OIY 0cZZbgT5fxNpe eqimiT7iHpa+Y99SWN9UW IBCUW7LUoy0Z1QcNjkceG I+QB64ZGZzCE13fHMvcCR xz5nggLs7ZqUj TEFkHNT3pDnxXPvoq6EoQ VPsO60xvLEtv1I0DGLwxF dbkMUsHnEqtFE4hO0bBAe kzjobz6efxikn Gaouw8qdsf87tS52X56sW EtoPACfSOE2UWBlNRGqtG xcen8jzC5wFg6+QFjlv1j ra0aakVg1EcOb BACpxpBygGjdSXP7j0MmF z56W4JikDfrs0KqTqz6yl 85jXZhn5E2jXB6MHmnRTZ vhO7vGRstNdI0 TOBlCoXynL30mGPfVXdwE l2ubGzyqBsvVE9oZAZwmv pqEFHqoX8gHKTnkGNssKo rJW9wVZKiucyf k767MhCiOBA8TAApiUFzH 9ApjP2nCeKgUUNkFJQdH4 KnjXReRLeqK998AKxuSkR 1GQJvvaAgD3Of ZPIxgMucZhN9s2A1Pc2Vc 8KckwybLPK6EOipDMR4Sf MqZyNsMxU4Q6NkQvi1ZLH leEamEY4bB3Ey PWAvrwejnelbzLE8IYPdU OQabL97wNOcFPkoBg1vh8 R7y926XNGrMHDuyS46Fm9 udDogMTBwdCBU wI3kszqck5dqmmwhCaKvG IBtDXv3VCl8CUNaeWghYj JdVLY6SnO8ZMQ7iYBonS5 xsGttmpeexJ2b Oyc+G48mjX2iWIC4UJT7q ukyRSCvrpAtWW84KI18Y2 RyPjwvdGFibGU+PGRpdiB dxGcmQE6xIuPr z4bqz9WqGNibL0PhKYCvY GqsRph1TFCiOWK7nAX0yK 8eEMMrWDjie0C3kBW8U2J usvFdhk1xg2ij WMTzHVknZ22jzYLmq1C4H RXlvJW3PDEbpMpiHvNwgH 93Oyc+FCHgeMyff7KiQvc gm5gwp6srbDz0 JpTuFYRlctCbjDwbRMH2j 8VyMy76R45mIMvwTYQvEY GjRBMoWFOoaIcgxc6usK2 wIi8+PGNvbCB3 iVM0nE7xEXPeHxI4RFvwK 522KkXsqNVbSyvag2hvb7 fneYf4FqFfWBYzwsDkvPh yUMT9j2IdKy31 Y96fMEksKDIbXAOeBHDxY WUxeKerdd1ykM0lAr6+PC 1hq2vrwe31hQ00vFE+PHR eAXE0bHdfPYvb PPVzzW9nKZxySrG2YUPxY kVefT46rRIgMEwwQz6kxR tmyInrIH8pZPVukaymg33 3PfTty8ynOYZb gPQmAOibVDS6D71nz1H0E LDeSKTdYYZ9eNH4vI9syI lnbjogbGVmdDsgdmVydGl cEGraWKynY475 IHRvcDsnPlBhdGllbnQgT gYrUCc6Z8QaBjz0JJInrQ yiUK5nmBQkHJxsRl0siUg kgNvhBH8qRRRz xrjmj764VaMqy3bzRGJbz UEbQHzbFYK0U86tw1N0WE VrPTDsCXG9pSX3iY6nkMb nbjogbGVmdDsg yzUhsWhsVRmdXVpsC849V HRvcDsnPkJpcnRoIERhdG J7ZK54CE01xVPiz2M1gHQ 0P0LfUFPnhbif ynlszAH2BIEfIBWkzR76M b3ekRqwBx4oQWJuDTW5AC CxqSDyL0OthR2yDbBjXPI hLGDxQ6BzpJVr DDcqG754RJlaLmB5AEEfp lHxL4XpHKUpkDotPaG7l3 E6Du4JG2Y1SS15RB99hPX if8T5bKT5B9Ad ZCQgajgkmueyfIX2USOrU BJvwS84Jn8zpQteUv7rXY EkYQM3BEYejTFsK1MapA2 yOiAjMDAwMDAw U6GbpSHgBQmvI611QYdnP zC4QZPmlzKiN5PtSPElpK iiJyI6p6H1Pn4DYRf9VT2 1QW43dXBjf7Q8 pCU4B9QnLGUvgrkbxcabs VO9NJVoLEJraQ39Hf0mdW ucTt7tTHPxRER7XVAbfNT sU4JxlI7cBfYx AGPtZUPfK4EpvIAwJCkiP 347COgfWyL7OVJfkpJcR7 LkJLPwlLnbUjS6c6D7Jx0 YMXLdUJ81IKW1 bHN4UE12YQ69G4LmBsxcp GFibGU+PHRhYmxlIHdpZH RoPScxMDAlJyBzdHlsZT0 cVj5eOGMiKVEp tQqloVJkCoAzt7vnMCRtE OqdOC9nrNubS0XgnBN3JD Qfs2b9Lo71E63yY4HtoWR +UHEwhBM4hSB5 qJ7xUcJxFfX6DUtmN191U vNizFDeHtbkn4yux7cslJ d9SzW9JZRkbyQxuKjrFQT 7z8XaPf04C42b IHdpZHRoPSIxNSUiIHZhb Mgtqi7nrA3gMz0+PGNvbC A9wUW0wI4fFnTjNxE3EJa vO282LbKlnJFu Ysiol0ubi4syfUj3EzIsO POzrcRxfIptVOD5s2KzPn 87C4ZinUcla9HxIcp5ez8 5jMIih8X2kAD9 H1HxCUCinoqlxOHjzLcrU H6mTGVthmmwMQAtyS6iMO OsS8f4KtYaHvO0JIyhX5N qicZ1EOLsxVSa HZybVET7W73nu3O3TYYoW TXjERM6kFT3iA2rkLregf ogbGVmdDsgdmVydGljYWw yDRsjO607XMMh rDgaFEQgnR2iDVOnfUBxv LntFI1mMWVxdrqjYpzYMT wNIzzpHNHKCZICWQ67PH6 7gJEff3X7fZQ0 D1LhHBVtfjcnfdsniKW1F HTxSCBxoP49mYSaMIsbEt 5yx5D5v168VWEpUNBeaZ7 8Ub4gzOtpUCQs oKVJwQ6twviqw0srjlqiU xRqYHQxVQa6AOy4TCNrnQ ozIdNaIJP7ZrK0WNS6iKP aaX6soErxzgnf gF7aXle+BVVvMyBdTWs3U TwvdGQ+GVCeYBP5aKwzFJ usEKPyxK4oQDHsJ2p1IaP wAeP7IHkoG7Pn PFAhqjhaIe24pS3oRrTvN jH8RWuaY3TosfO4HWDqfY VqCDjuTZN0K68pf1M2CIC cZCXtFQI9bNR5 tO8mcPhlxwxchRVrgKpgu oUgzLuvVTscMZeiZ794QN RvcDsnPjMwIFllYXJzPC9 8JK76rOWxq4P0 cPW6V2DnAYGhiinmsrikb SI1MCCkFFUckU32wWXjHJ cjBi9nv4P4m257RLZjRIO jeD59Th6kdDsa CQAxkOFBeX8xcfccs2zml cjfScFbRDPlJQx2USl7AN VqkDkrKhOnFSV9JnC8SWT 7zVXheD8tsOop qfdybZ3rEzt+RmVtYWxlP P33XP77uJRxd5L7qHV6Z8 GmMZFxzgdjvuzklRG8DUQ yWRNeoU99vZPy NPfhYj0qk3P6j522SVDiI MUrkK29Vd7fySzbNIVjiK RYpQ3ebljhv9vvvrzgIbF lOEUsBOt4PSw4 YXTrvVscXgYhCLZ9FaI7D XF2aKJeqB4lxWdydaiafH 9wOyc+GDRwJOWzw0Dbp9E wOC20TB44L0At PjwvdGFibGU+PHRhYmxlI HdpZHRoPScxMDAlJyBzdH vhKV5wPg1xXWKqDTHylAu whERfWaLgg5pq KTRiNJagJC2oyVqoZ0Pns HX3QUQpd3u2Bd81E51uJ4 JvdXA+FYSvwNM4pRC7uF6 iPyAaPnK6OSng C937FiYzzVWgMewcl6dpj 4sudZc3MfGwNBCfglIioP mtONA9u7UzMk25N12hIAn pZHRoPSIyMCUi BRFqoKljub0kkM8rQb5+P ASnwMO9nOD8dC7sAhXgLm R7AYtjM384QgFihNOcRge gH79pR6DwbZA+ ZECcZyu3TPKsuLhnUJ7no QJaYDetXh6dFLO8DxSuBn WbZKvvL4HzHBEsrenevzu mdNR9IHLnIZLu qF81Fn7azZelVn5mETHrU KA6PTGbyVEoC6TleU4hSy IdTDMgYEGrN6EesGTiXEt lK832MJyiEhI9 OSXnwxYqT2JiHMUgaKjcV qO7t8I7Co6PqUfgdYUfJR 7wHzRiAIf7C0VsBvq5JPH ohQqbBS5xmKUl GPelVi7tpCauiBwzXS4oO NNyvjxoi403VdGoj9skUU TtaMFlTTuyORX1A82vm5Q 2JZCtFGZlTZH3 cSB6qD9ebDoxtmybyBPkf DsgdmVydGljYWwtYWxpZ2 13RJUigPaoDbTVZcm2N8D xEeo2HZAafMik YF7meTBhVAvfFr3vnFqum UxdKI3uCUNcqifnl633Iw Sla0otDPAlxJJuZPcuNWE 4B79cc1S6FYBn CZZbJLX4rUO6eY7npPatj jogbGVmdDsgdmVydGljYW mjBAvsX847PXUfwEuqKi9 DBml5D2YaDpu5 DBWixPlnLF3cxRWjWEmaB q4joRxujRbnLN9sBDEuji vlx188IlGsh0xdZGIniRN oNChsEIL8W93v a4E3XCNkBWJuEVO9jAT0u X3tvJfppupfwVHhiCokfc PhyOkrTLmtOFarD615CAV vcDsnPlBheWVy OjwvdGQ+SD62sv22H2ZaL ahaUew5DTBuEKP7mIT0rV 8tKYCgGPcqg5A6jAT6C2B likEkax4ed4ke YXBz (more content not included)... Normal [facility] CSF Cell Counton 05-26-2021 Clarity (CSF) CLEAR Normal [facility] Comment on above: Performed By: #### 2 [id number] #### [facility] Laboratory [address] [place] [address] Color (CSF) Colorless Normal [facility] Comment on above: Performed By: #### 2 [id number] #### [facility] Laboratory [address] [place] [address] RBC Auto (CSF) [#/Vol] 12 High <=0 [facility] Comment on above: Performed By: #### 2 [id number] #### [facility] Laboratory [address] [place] [address] Tube Num CSF 3 Invalid Interpretation Code [facility] Comment on above: Performed By: #### 2 [id number] #### [facility] [address] [place] [address] WBC CSF 4 cells/mcL Normal 0-5 [facility] Comment on above: Performed By: #### 2 [id number] #### [facility] Laboratory [address] [place] [address] Clarity (CSF) CLEAR Normal [facility] Comment on above: Performed By: #### 2 [id number], [id number] #### [facility] Laboratory [address] [place] [address] Color (CSF) Colorless Normal [facility] Comment on above: Performed By: #### 2 [id number] #### [facility] [address] [place] [address] RBC Auto (CSF) [#/Vol] 96 High <=0 [facility] Comment on above: Performed By: #### 2 [id number] #### [facility] [address] [place] [address] Tube Num CSF 1 Invalid Interpretation Code [facility] Comment on above: Performed By: #### 2 [id number] #### [facility] [address] [place] [address] WBC CSF 3 cells/mcL Normal 0-5 [facility] Comment on above: Performed By: #### 2 [id number], [id number] #### [facility] [address] [place] [address] CSF Glucoseon 05-26-2021 Glucose (CSF) [Mass/Vol] 58 mg/dL Normal 46-70 [facility] Comment on above: Performed By: #### 2 [id number], [id number] #### [facility] [address] [place] [address] CSF Proteinon 05-26-2021 Protein (CSF) [Mass/Vol] 21.0 mg/dL Normal 14.0-45.0 [facility] Comment on above: Performed By: #### 2 [id number], [id number], [id number] #### [facility] Laboratory [address] [place] [address] Physician Orderon 05-26-2021 Physician Order [id number]# 1.00CD:127 Normal [facility] CBC AUTO DIFFon 05-06-2021 BASO # 0.1 103/ul Normal 0.0-0.1 Comment on above: Performed By: #### C BC #### [facility] [address] [place] [address] Dr. María Sosa Basophils/100 WBC (Bld) 0.7 % Normal 0.2-2.0 Comment on above: Performed By: #### C BC #### [facility] [address] [place] [address] Dr. María Sosa EO # 0.2 103/ul Normal 0.0-0.7 Comment on above: Performed By: #### C BC #### [facility] [address] [place] [address] Dr. María Sosa Eosinophils/100 WBC (Bld) 2.4 % Normal 0.9-7.0 Comment on above: Performed By: #### C BC #### [facility] [address] [place] [address] Dr. María Sosa Erythrocyte distribution width (RBC) [Ratio] 12.6 % Normal 11.0-15.0 Comment on above: Performed By: #### C BC #### [facility] [address] [place] [address] Dr. María Sosa Hematocrit (Bld) [Volume fraction] 40.2 % Normal 36.0-48.0 Comment on above: Performed By: #### C BC #### [facility] [address] [place] [address] Dr. María Sosa Hemoglobin (Bld) [Mass/Vol] 14.2 g/dL Normal 12.0-16.0 Comment on above: Performed By: #### C BC #### [facility] [address] [place] [address] Dr. María Sosa IG # 0.02 10e3/ul Normal 0.00-0.03 Comment on above: Performed By: #### C BC #### [facility] [address] [place] [address] Dr. María Sosa IG % 0.3 % Normal 0.0-0.5 Comment on above: Performed By: #### C BC #### [facility] [address] [place] [address] Dr. María Sosa LYMPH # 2.4 103/ul Normal 1.2-3.8 Comment on above: Performed By: #### C BC #### [facility] [address] [place] [address] Dr. María Sosa Lymphocytes/100 WBC (Bld) 34.4 % Normal 20.5-60.0 Comment on above: Performed By: #### C BC #### [facility] [address] [place] [address] Dr. María Sosa MANUAL DIFF REQ NO Normal [facility] Comment on above: Performed By: #### C BC #### [facility] [address] [place] [address] Dr. María Sosa MCH (RBC) [Entitic mass] 30.9 pg Normal 26.7-34.0 Comment on above: Performed By: #### C BC #### [facility] [address] [place] [address] Dr. María Sosa MCHC (RBC) [Mass/Vol] 35.3 g/dL Critically high 29.9-35.2 [facility] Comment on above: Performed By: #### C BC #### [facility] [address] [place] [address] Dr. María Sosa MCV (RBC) [Entitic vol] 87.4 fL Normal 81.0-99.0 Comment on above: Performed By: #### C BC #### [facility] [address] [place] [address] Dr. María Sosa MONO # 0.4 103/ul Normal 0.3-0.8 [facility] Comment on above: Performed By: #### C BC #### [facility] [address] [place] [address] Dr. María Sosa Monocytes/100 WBC (Bld) 5.9 % Normal 1.7-12.0 [facility] Comment on above: Performed By: #### C BC #### [facility] [address] [place] [address] Dr. María Sosa NEUT # 3.9 103/ul Normal 1.4-6.5 [facility] Comment on above: Performed By: #### C BC #### [facility] [address] [place] [address] Dr. María Sosa Neutrophils/100 WBC (Bld) 56.3 % Normal 43.0-75.0 [facility] Comment on above: Performed By: #### C BC #### [facility] [address] [place] [address] Dr. María Sosa Platelet mean volume (Bld) [Entitic vol] 9.5 fL Normal 9.5-13.5 [facility] Comment on above: Performed By: #### C BC #### [facility] [address] [place] [address] Dr. María Sosa PLT 325 103/ul Normal 150-450 [facility] Comment on above: Performed By: #### C BC #### [facility] [address] [place] [address] Dr. María Sosa RBC 4.60 106/ul Normal 4.20-5.40 [facility] Comment on above: Performed By: #### C BC #### [facility] [address] [place] [address] Dr. María Sosa WBC 7.0 103/ul Normal 4.0-11.0 [facility] Comment on above: Performed By: #### C BC #### [facility] [address] [place] [address] Dr. María Sosa PROTIMEon 05-06-2021 INR Coag (PPP) [Relative time] 1.00 {INR} Normal [facility] Comment on above: Performed By: #### P T, PTT #### [facility] [address] [place] [address] Dr. María Sosa INR GUIDELINES SEE BELOW Normal [facility] Comment on above: Result Comment: ARLETTE RED INR: 2.0 - 3.0 CONDITIONS NOT LISTED BELOW 2.5 - 3.5 FOR PROSTHETIC HEART VALVE REPLACEMENT 2.5 - 3.5 RECURRENT THROMBOSIS Performed By: #### P T, PTT #### [facility] [address] [address] [address] María Sosa PT Coag (PPP) [Time] 10.8 s Normal 9.0-11.6 [facility] Comment on above: Performed By: #### P T, PTT #### [facility] [address] [place] [address] Dr. María Sosa PTTon 05-06-2021 aPTT Coag (Bld) [Time] 28.7 s Normal 22.3-36.2 Comment on above: Performed By: #### P T, PTT #### [facility] [address] [place] [address] Dr. María Sosa MR cervical spine wo conon 0 03-18-2021 MR cervical spine wo con [facility] [place] [address] MRI Report Signed Patient: Zoe Goddard MR#: [id number] : 1990 Acct:[id number] Age/Sex: 31 / F ADM Date: 03/18/21 Loc: [facility] Room: Type: [facility] Attending Dr: Homero Erickson DO Ordering Provider: Juan Carlos Erickson DO Date of Service: 03/18/21 MR/MR cervical spine wo con: [id number] Copies to: Juan Carlos Erickson DO MR cervical spine wo con 03/18/2021 2:48 PM SIGNS AND SYMPTOMS: Neck pain, stiffness, tension headaches PROTOCOL: Multiplanar multisequence MR images of the cervical spine were obtained without contrast. COMPARISON: None. FINDINGS: There is straightening of the normal cervical lordosis. The bones are in anatomic alignment. There is preservation of vertebral body heights and intervertebral disc spaces. The marrow signal is within normal limits. The cord is normal in signal. No epidural or paraspinous fluid collection is appreciated. The visualized paraspinous soft tissues are within normal limits. The prevertebral soft tissues are within normal limits. Incidental note is made of flattening of the pituitary within the sella. This is atypical for the patient's age. Correlation with any clinical signs of intracranial hypertension is recommended. At C2-C3: There is a normal disc, central canal, and neural foramen. At C3-C4: There is a normal disc, central canal, and neural foramen. At C4-C5: There is a normal disc, central canal, and neural foramen. At C5-C6: There is a normal disc, central canal, and neural foramen. At C6-C7: There is a normal disc, central canal, and neural foramen. At C7-T1: There is a normal disc, central canal, and neural foramen. MR/MR cervical spine wo con IMPRESSION: There is straightening of the normal cervical lordosis which may be positional or secondary to muscle spasm. No cord signal abnormality or cord compression. No significant spinal canal or neural foraminal narrowing. Incidental note is made of flattening of the pituitary within the sella. This is atypical for the patient's age. Correlation with any clinical signs of intracranial hypertension is recommended. Impression dictated by: Fitz Rapp M.D.03/18/2021 3:59 PM Dictation Location: [place] [address] Transcribed By: [facility] 03/18/21 1559 Dictated By: Fitz Rapp II, MD 03/18/21 1556 Signed By: 03/18/21 1559 [facility] Vital Signs Date Time Vital Sign Value Performing Clinician Whitley villalobos 04-10-2023 18:43-0500 Body height 165.1 cm Inga Taylor NP Work Phone: [facility] 04-10-2023 18:43-0500 Body mass index (BMI) [Ratio] 46.46 kg/m2 Inga Taylor NP Work Phone: [facility] 04-10-2023 18:43-0500 Body temperature 97.11 [degF] Inga Matsonjamari [employer] Work Phone: [facility] 04-10-2023 18:43-0500 Body weight 126.64 kg Inga Brandon [employer] Work Phone: [facility] 04-10-2023 18:43-0500 Diastolic blood pressure 76 mm[Hg] Inga Brandon [employer] Work Phone: [facility] 04-10-2023 18:43-0500 Heart rate 75 /min Inga Brandon [employer] Work Phone: [facility] 04-10-2023 18:43-0500 Respiratory rate 20 /min Inga Brandon [employer] Work Phone: [facility] 04-10-2023 18:43-0500 SaO2% (BldA) [Mass fraction] 98 % Inga Brandon [employer] Work Phone: [facility] 04-10-2023 18:43-0500 Systolic blood pressure 98 mm[Hg] Inga Huyenbecolinz [employer] Work Phone: [facility] Healthcare Encounters Encounter Date Encounter Type Care Provider Facility Start: 04-10-2023 End: 04-10-2023 ambulatory INGA TAYLOR Not Available Start: 04-10-2023 End: 04-10-2023 Office outpatient visit 25 minutes Inga Taylor [employer] Work Phone: [facility] Comment on above: Paresthesia of right upper extremity (Primary Dx); BMI 45.0-49.9, adult ([facility]) Start: 04-10-2023 Bamboo flowsheet Inga Taylor [employer] Work Phone: [facility] Start: 04-10-2023 Bamboo flowsheet Inga Taylor [employer] Work Phone: [facility] Start: 03-26-2022 End: 03-26-[address] ARIEL LARKIN Facility:[facility] Start: 05-06-2021 End: 05-07-2021 ambulatory STEVEFARSHAD BARTHOLOMEW Facility:[facility] Start: 07-31-2018 End: 08-01-2018 ambulatory REFERRED SELF Facility:[facility] Procedures Date Procedure Procedure Detail Performing Clinician Start: 08-01-2018 Therapeutic prophyla ctic/dx injection subq/im ROBIN Kay ELLEN Start: 07-31-2018 Emergency department patient visit LATRICIA AGUIRRE Start: 07-31-2018 Ther proph/dx njx iv push single/1st sbst/drug LATRICIA AGUIRRE Plan of Treatment Date Care Activity Detail Author Start: 05-01-2023 End: 05-01-2023 Patient encounter procedure 05/01/2023 6:40 PM EST Office Visit [facility] [address] [place] [phone] Inga Taylor, [employer] [address] [place] [phone] [facility] Start: 04-10-2023 End: 04-10-2023 Patient encounter procedure 04/10/2023 6:40 PM EST Office Visit [facility] [address] [place] [id number] Inga Taylor, [employer] [address] [place] [phone] [facility] Comment on above: Arrived Start: 04-10-2023 End: 04-10-2024 XR Cervical spine 2 or 3 Views XR cervical spine 2 or 3 views Imaging Routine Paresthesia of right upper extremity Expected: 04/10/2023 (Approximate), Expires: 04/10/2024 [facility] Work Phone: Comment on above: Expected: 04/10/2023 (Approximate), Expires: 04/10/2024 Start: 04-10-2023 End: 04-10-2024 XR Shoulder - right 2 Views XR shoulder 2+ views right Imaging Routine Paresthesia of right upper extremity Expected: 04/10/2023 (Approximate), Expires: 04/10/2024 [facility] Comment on above: Expected: 04/10/2023 (Approximate), Expires: 04/10/2024 Payers Date Payer Category Payer Unknown BCBS BCBS [id number] [id number] 2021-Present [phone] [address] [place] [address] [id number] 1990 Unknown [id number] 1990 Unknown [id number] 1990 Unknown [id number] 1990 Unknown [id number] 1958 Unknown [id number] Unknown [id number] Social History Date Type Detail Facility Start: 08-16-2022 Tobacco smoking status NDIS Never sm oked tobacco [facility] Start: 08-16-2022 Tobacco use and exposure Smoke less tobacco non-user [facility] Start: 04-09-2023 End: 04-10-2023 Alcohol intake Ex-drinker (finding) [facility] Start: 09-15-2022 End: 04-10-2023 [facility] of [facility] Start: 09-15-2022 End: 04-10-2023 Humiliation, Afraid, Rape, and Kick questionnaire [HARK] [facility] Within the last year , have you been afraid of your partner or ex-partner? No [facility] How often do you att end restorationism or quaker services? Patient refused [facility] Are you now , , , , never or living with a partner? [facility] How often to you hav e a drink containing alcohol? Monthly or less [facility] How many standard dr inks containing alcohol do you have on a typical day? 1 or 2 [facility] How often do you hav e 6 or more drinks on 1 occasion? Never [facility] How hard is it for y ou to pay for the very basics like food, housing, medical care, and heating Not very hard [facility] Do you feel stress - tense, restless, nervous, or anxious, or unable to sleep at night because your mind is troubled all the time - these days [OSQ] Only a little [facility] (I/We) worried wheth er (my/our) food would run out before (I/we) got money to buy more. Never true [facility] Start: 04-09-2023 Alcohol Comment social [facility] Start: 1990 Sex Assigned At Not on file [facility] History of Present illness Narrative 04-10-2023 Inga Taylor NP - 04/10/2023 7:52 PM Quoc Taylor NP - 04/10/2023 7:52 PM ZAINAB CARRILLO - 04/10/2023 6:40 PM Quoc Taylor NP - 04/10/2023 6:40 PM EST Note Date & Type Note Facility 04-10-2023 History of Presen t illness Narrative Associated Problem(s): BMI 45.0-49.9, adult ([facility]) Consider Yolanda or Javier, pt will research these and discuss at fu appt in 3 weeks Associated Problem(s): Paresthesia of right upper extremity Not a clear etiology wether cervical or shoulder Check xrays, add muscle relaxers Fu in 3 weeks and go from there Right shoulder pain for the last 15 years has gotten worse in the last two years. Causing numbness down to the elbow and sometimes to the hand. No injury that pt can think of. Pain usually comes and goes but the pain has been more constant lately waking her in the middle of the night. Pt takes tylenol if it gets worse but does not help much. Pt would like to discuss the metformin Images from the original note were not included. Zoe Goddard is a 33 y.o. female presents with chief complaint of No chief complaint on file. HPI: Also frustrated with lack of weight loss, is physically active most days of the week at the gym, also low to no carbs Trialed many diets What else to do?? Shoulder Pain The pain is present in the right shoulder. This is a chronic problem. The current episode started more than 1 year ago. There has been no history of extremity trauma. The problem occurs constantly. The problem has been gradually worsening. The quality of the pain is described as aching, burning and sharp. The pain is moderate. Associated symptoms include numbness and tingling. Pertinent negatives include no fever. The symptoms are aggravated by activity. She has tried nothing for the symptoms. Neck Pain This is a chronic problem. The current episode started more than 1 year ago. The problem occurs daily. The problem has been gradually worsening. The pain is associated with nothing. The pain is present in the right side. The quality of the pain is described as aching, burning, stabbing and shooting. The pain is moderate. Nothing aggravates the symptoms. Associated symptoms include numbness and tingling. Pertinent negatives include no chest pain, fever, headaches, pain with swallowing or trouble swallowing. She has tried nothing for the symptoms. SUBJECTIVE: MEDICATIONS: Current Outpatient Medications Medication Instructions acetaZOLAMIDE (Diamox) 250 MG tablet 2 times daily B Complex Vitamins (B COMPLEX 1 PO) B Complex loratadine (Claritin) 10 MG tablet Claritin metFORMIN (Glucophage) 500 MG tablet 1 tablet, Oral, Daily with breakfast methylPREDNISolone (Medrol Dospak) 4 MG tablets Follow schedule on package instructions traZODone (Desyrel) 50 MG tablet 2 tablets, Oral, Nightly triamcinolone (Nasacort) 55 MCG/ACT nasal inhaler 2 sprays, Each Nostril, Daily ALLERGIES: Allergies Allergen Reactions Honey Anaphylaxis Other Reaction(s): Hives when on skin Penicillin G Other Reaction(s): hives Wound Dressing Adhesive Other Reaction(s): Blisters, Swelling, Hives REVIEW OF SYMPTOMS: Review of Systems Constitutional: Positive for unexpected weight change. Negative for appetite change, chills and fever. HENT: Negative for congestion, ear pain, sore throat and trouble swallowing. Eyes: Negative for pain, discharge, redness and visual disturbance. Respiratory: Negative for cough, shortness of breath and wheezing. Cardiovascular: Negative for chest pain, palpitations and leg swelling. Gastrointestinal: Negative for abdominal pain, blood in stool, constipation, diarrhea, nausea and vomiting. Genitourinary: Negative for difficulty urinating, dysuria and frequency. Musculoskeletal: Positive for arthralgias and neck pain. Negative for back pain, joint swelling and myalgias. Skin: Negative for rash and wound. Neurological: Positive for tingling and numbness. Negative for dizziness, tremors, seizures, syncope and headaches. Psychiatric/Behavioral: Negative for behavioral problems, self-injury and suicidal ideas. The patient is not nervous/anxious. Hematological: Does not bruise/bleed easily. Endocrine: Negative for polydipsia, polyphagia and polyuria. Allergic/Immunologic: Negative for environmental allergies and food allergies. PAST MEDICAL HISTORY Past Medical History: Diagnosis Date Accumulation of fluid in tissues Allergic rhinosinusitis Anemia, mild At low risk for fall Chronic neck pain Constipation in female COVID-19 Deep dyspareunia Family history of breast cancer GDM (gestational diabetes mellitus) Hammer toe of right foot Increased intracranial pressure Influenza vaccination declined Insomnia Migraine (CMS/HCC) Morbid obesity with BMI of 40.0-44.9, adult (CMS/HCC) Nonsmoker Pain in both knees, unspecified chronicity PCOS (polycystic ovarian syndrome) Preeclampsia induced hypertension Vaginal odor Vertigo Past Surgical History: Procedure Laterality Date CT ANGIOGRAM HEART CORONARY 08/02/2018 CT ANGIOGRAM TAVR DILATION AND CURETTAGE D & C within 30 minutes of vaginal delivery for retained placents HYSTEROSCOPY 05/31/2017 Hysteroscopy, Essure bilateral tubal ligation, IUD removal MD UPPER ARM/ELBOW SURGERY UNLISTED Procedure: Left arm surgery 2 metal plates 14 screws family history includes Breast cancer in her mother; Diabetes in her father; Hypertension in her father; Ovarian cancer in an other family member; Uterine cancer in an other family member. OBJECTIVE: Visit Vitals BP 98/76 (BP Location: Left arm, Patient Position: Sitting, BP Cuff Size: Large adult long) Pulse 75 Temp 97.1 F (Temporal) Resp 20 Ht 5' 5 Wt 279 lb 3.2 oz SpO2 98% BMI 46.46 kg/m OB Status Having periods Smoking Status Never BSA 2.41 m Physical Exam Constitutional: General: She is not in acute distress. Appearance: Normal appearance. HENT: Head: Normocephalic and atraumatic. Right Ear: External ear normal. Left Ear: External ear normal. Nose: Nose normal. Mouth/Throat: Mouth: Mucous membranes are moist. Eyes: Extraocular Movements: Extraocular movements intact. Conjunctiva/sclera: Conjunctivae normal. Cardiovascular: Rate and Rhythm: Normal rate and regular rhythm. Pulses: Normal pulses. Heart sounds: Normal heart sounds. Pulmonary: Effort: Pulmonary effort is normal. Breath sounds: Normal breath sounds. Abdominal: General: Bowel sounds are normal. There is no distension. Palpations: Abdomen is soft. There is no mass. Tenderness: There is no abdominal tenderness. Musculoskeletal: Cervical back: Normal range of motion and neck supple. Comments: +tight/tender right trap region Near full cervical ROM as well as right shoulder DTR's 2+ bilat UE , -tinels and phalens bilat No tenderness right elbow and has full ROM Hand grasps=bilat Rotator cuff strength 5/5 bilat UE Skin: General: Skin is warm and dry. Capillary Refill: Capillary refill takes 2 to 3 seconds. Findings: No rash. Neurological: General: No focal deficit present. Mental Status: She is alert and oriented to person, place, and time. Psychiatric: Mood and Affect: Mood normal. Behavior: Behavior normal. Thought Content: Thought content normal. Judgment: Judgment normal. ASSESSMENT AND PLAN: No follow-ups on file. Problem List Items Addressed This Visit BMI 45.0-49.9, adult (CMS/HCC) Paresthesia of right upper extremity - Primary Relevant Medications tiZANidine (Zanaflex) 4 MG tablet Other Relevant Orders XR cervical spine 2 or 3 views XR shoulder 2+ views right documented in this encounter [facility] Evaluation note Note Date & Type Note Facility Evaluation note Diagnosis Paresthesia of right upper extremity- Primary BMI 45.0-49.9, adult (CMS/HCC) documented in this encounter [facility] Summary Purpose Family History No Family History Records FoundNo Family History Records FoundNo Family History Records FoundNo Family History Records FoundNo Family History Records FoundNo Family History Records Found Advance Directives No Advanced Directives Records FoundNo Advanced Directives Records FoundNo Advanced Directives Records FoundNo Advanced Directives Records FoundNo Advanced Directives Records FoundNo Advanced Directives Records Found Additional Source Comments INFORMATION SOURCE (unrecogn ized section and content) DATE CREATED AUTHOR 03/28/2021 [facility] DATE CREATED AUTHOR AUTHOR'S ORGANIZ ATION 05/12/2021 [facility] DATE CREATED AUTHOR AUTHOR'S ORGANIZ ATION 07/09/2021 [facility] DATE CREATED AUTHOR AUTHOR'S ORGANIZ ATION 03/25/2022 [facility] Special[facility] DATE CREATED AUTHOR AUTHOR'S ORGANIZ ATION 03/29/2022 [facility] DATE CREATED AUTHOR AUTHOR'S ORGANIZ ATION 04/12/2023 [facility] EPIC Care Teams (unrecognized sec tion and content) [employer] Representative Relationship Specialty Start Date End Date Unallocated, [facility] [address] [place], [place] [id number] PCP - General 08/16/22 Inga Taylor NP [address] [place] [address] Referring Physician Nurse Practitioner 08/16/22 [employer] Relationship Specialty Start Date End Date Unallocated, [facility] [address] [place] [address] PCP - General 08/16/22 Inga Taylor NP [address] [place] [address] Referring Physician Nurse Practitioner 08/16/22 FOR RECORDS PERTAINING TO PATIENTS WHO ARE OR HAVE BEEN ENROLLED IN A CHEMICAL DEPENDENCY/SUBSTANCEABUSE PROGRAM, SOME INFORMATION MAY BE OMITTED. This clinical summary was aggregated from multiple sources. Caution should be exercised in using it in the provision of clinical care. This summary normalizes information from multiple sources, and as a consequence, information in this document may materially change the coding, format and clinical context of patient data. In addition, data may be omitted in some cases. CLINICAL DECISIONS SHOULD BE BASED ON THE PRIMARY CLINICAL RECORDS. [facility] [employer] [facility]. provides no warranty or guarantee of the accuracy or completeness of information in this document.
--- NOTE | 2023-04-18 08:07 | XR_ITS ---
The [address] [address] Patient Name: ZOE GORVE MRN: [id number] date: 1990 Sex: F Assigned Patient Location: [facility] Current Patient Location: [facility] Accession/Order Number: [id number] Exam Date: 04/18/2023 08:11 Report Date: 04/18/2023 12:47 At the request of: CAROLINE MANCILLA Procedure: XR cervical spine 2-3V EXAM: XR cervical spine 2-3V HISTORY: Paresthesia Of Right Upper Extremity R20.2 COMPARISON: None. TECHNIQUE: 3 views Findings/impression: Satisfactory alignment. Superior endplate irregularity of C6 vertebral body, which may be secondary to projection or indeterminate nondisplaced fracture. This can be further evaluated with MRI. Remainder of the vertebral body heights maintained. Multilevel endplate degenerative changes and disc disease. No significant subluxation. Electronically authenticated by: BERNICE BARRETT Date: 04/18/2023 12:47
--- NOTE | 2023-04-18 08:07 | XR_ITS ---
[address] [address] Patient Name: ZOE GROVE MRN: [id number] date: 1990 Sex: F Assigned Patient Location: [facility] Current Patient Location: [facility] Accession/Order Number: [id number] Exam Date: 04/18/2023 08:11 Report Date: 04/18/2023 10:02 At the request of: CAROLINE MANCILLA Procedure: XR shoulder RT min 2V EXAM: XR shoulder RT min 2V HISTORY: Paresthesia Of Right Upper Extremity R20.2 COMPARISON: None. TECHNIQUE: 3 views FINDINGS: No acute fracture or dislocation. Mild degenerative changes of the acromioclavicular and glenohumeral joints. Unremarkable soft tissues. XR/XR shoulder RT min 2V IMPRESSION: Degenerative changes as above. Electronically authenticated by: BERNICE BARRETT Date: 04/18/2023 10:02
== END 2023-04-18 07:59 | disposition home or self-care (01) ==
LOC: RAD 08:00
PROVIDERS: PCP Nurse Practitioner; Visit Provider Nurse Practitioner
DX: R20.2 Paresthesia of skin (principal)
CPT/HCPCS: 72040; 73030

== ENCOUNTER 2023-04-24 07:52 | Outpatient (OUT) | payer BC, SELFPAY ==
--- OUTSIDE RECORDS SUMMARY | 2023-04-24 07:56 | XMS_ITS | CCD ---
Author Name Unknown Address [address] [place] [id number] Organization [facility] Care Team Providers Care Management Aide Name Role Phone SELF, REFERRED Referring Unavailable UNKNOWN, PHYSICIAN Primary Care Unavailable ROBIN HUGHES Attending Unavailable ROBIN HUGHES Admitting Unavailable NE Procedure Practitioner Unavailab LATRICIA Recinos Surgeon Unavailable NE Procedure Practitioner Unavailab ROBIN Zamora Surgeon Unavailable DR ARIEL LARKIN Admitting Unavailable CHAYA, DR GEORGE Consulting Unavailable DR ARIEL LARKIN Attending Unavailable GERMANIA TAYLOR Primary Care Unavailable NOLAN AME Consulting Unavailable STEVE BARTHOLOMEW Admitting Unavailable STEVE BARTHOLOMEW Consulting Unavailable STEVE BARTHOLOMEW Attending Unavailable GERMANIA TAYLOR Primary Care Unavailable Brandon POULTRY PATHOLOGIST, Inga Unavailable Unallocated, [facility] Provider Primary Care Provider INGA TAYLOR Attending Unavailable Allergies Allergy Classification Reported Allergen(s) Allergy Type Date of Onset Reaction(s) Facility (1 source) Honey Drug allergy (disorder) 11-19-2015 [facility] (1 source) Penicillin Drug Allergy [facility] (3 sources) Honey Allergy to substance 08-16-2022 Anaphylaxis [facility] (3 sources) Penicillin G Drug Allergy 08-16-2022 [facility] (3 sources) Wound Dressing Adhesive Drug Allergy 08-16-2022 [facility] Medications Current Medications Medication Drug Class(es) Dates [...] 03-26-2022 BASO # 0.0 103/ul Normal 0.0-0.1 [facility] Comment on above: Performed By: #### C BC #### [facility] [address] [place] [address] Dr. María Sosa Basophils/100 WBC (Bld) 0.6 % Normal 0.2-2.0 [facility] Comment on above: Performed By: #### C BC #### [facility] [address] [place] [address] Dr. María Sosa EO # 0.2 103/ul Normal 0.0-0.7 [facility] Comment on above: Performed By: #### C BC #### [facility] [address] [place] [address] Dr. María Sosa Eosinophils/100 WBC (Bld) 2.9 % Normal 0.9-7.0 [facility] Comment on above: Performed By: #### C BC #### [facility] [address] [place] [address] Dr. María Sosa Erythrocyte distribution width (RBC) [Ratio] 12.1 % Normal 11.0-15.0 [facility] Comment on above: Performed By: #### C BC #### [facility] [address] [place] [address] Dr. María Sosa Hematocrit (Bld) [Volume fraction] 37.4 % Normal 36.0-48.0 [facility] Comment on above: Performed By: #### C BC #### [facility] [address] [place] [address] Dr. María Sosa Hemoglobin (Bld) [Mass/Vol] 13.9 g/dL Normal 12.0-16.0 [facility] Comment on above: Performed By: #### C BC #### [facility] [address] [place] [address] Dr. María Sosa IG # 0.01 10e3/ul Normal 0.00-0.03 [facility] Comment on above: Performed By: #### C BC #### [facility] [address] [place] [address] Dr. María Sosa IG % 0.2 % Normal 0.0-0.5 [facility] Comment on above: Performed By: #### C BC #### [facility] [address] [place] [address] Dr. María Sosa LYMPH # 2.0 103/ul Normal 1.2-3.8 [facility] Comment on above: Performed By: #### C BC #### [facility] [address] [place] [address] Dr. María Sosa Lymphocytes/100 WBC (Bld) 30.8 % Normal 20.5-60.0 [facility] Comment on above: Performed By: #### C BC #### [facility] [address] [place] [address] Dr. María Sosa MANUAL DIFF REQ NO Normal [facility] Comment on above: Performed By: #### C BC #### [facility] [address] [place] [address] Dr. María Sosa MCH (RBC) [Entitic mass] 30.3 pg Normal 26.7-34.0 [facility] Comment on above: Performed By: #### C BC #### [facility] [address] [place] [address] Dr. María Sosa MCHC (RBC) [Mass/Vol] 37.2 g/dL Critically high 29.9-35.2 [facility] Comment on above: Performed By: #### C BC #### [facility] [address] [place] [address] Dr. María Sosa MCV (RBC) [Entitic vol] 81.7 fL Normal 81.0-99.0 [facility] Comment on above: Performed By: #### C BC #### [facility] [address] [place] [address] Dr. María Sosa MONO # 0.4 103/ul Normal 0.3-0.8 [facility] Comment on above: Performed By: #### C BC #### [facility] [address] [place] [address] Dr. María Sosa Monocytes/100 WBC (Bld) 5.3 % Normal 1.7-12.0 [facility] Comment on above: Performed By: #### C BC #### [facility] [address] [place] [address] Dr. María Sosa NEUT # 3.9 103/ul Normal 1.4-6.5 [facility] Comment on above: Performed By: #### C BC #### [facility] [address] [place] [address] Dr. María Sosa Neutrophils/100 WBC (Bld) 60.2 % Normal 43.0-75.0 [facility] Comment on above: Performed By: #### C BC #### [facility] [address] [address] [address] María Sosa Platelet mean volume (Bld) [Entitic vol] 9.2 fL Critically low 9.5-13.5 [facility] Comment on above: Performed By: #### C BC #### [facility] [address] [address] [address] María Sosa PLT 293 103/ul Normal 150-450 [facility] Comment on above: Performed By: #### C BC #### [facility] [address] [address] [address] María Sosa RBC 4.58 106/ul Normal 4.20-5.40 [facility] Comment on above: Performed By: #### C BC #### [facility] [address] [place] [address] Dr. María Sosa WBC 6.6 103/ul Normal 4.0-11.0 [facility] Comment on above: Performed By: #### C BC #### [facility] [address] [place] [address] Dr. María Sosa CT ABD/PELVIS WO CONon [...] NOLAN MAE Date: 2022-03-26 10:12 Normal [facility] ER URINE PROFILEon 3 Bilirubin Ql (U) Negative Normal NEGATIVE [facility] Comment on above: Performed By: #### U MICRO, ERUR, PREGU #### [facility] [address] [place] [address] Dr. María Sosa Clarity (U) CLEAR Normal CLEAR [facility] Comment on above: Performed By: #### U MICRO, ERUR, PREGU #### [facility] [address] [place] [address] Dr. María Sosa Color (U) LT. YELLOW Normal YELLOW [facility] Comment on above: Performed By: #### U MICRO, ERUR, PREGU #### [facility] [address] [place] [address] Dr. María GRAMAJOAHJon A micrscopic examination will be performed if indicated. Normal [facility] Comment on above: Performed By: #### U MICRO, ERUR, PREGU #### [facility] [address] [place] [address] Dr. María Sosa Glucose Ql (U) Negative Normal NEGATIVE [facility] Comment on above: Performed By: #### U MICRO, ERUR, PREGU #### [facility] [address] [place] [address] Dr. María Sosa Hemoglobin Ql (U) TRACE-INTACT Abnormal NEGATIVE [facility] Comment on above: Performed By: #### U MICRO, ERUR, PREGU #### [facility] [address] [address] [address] María Sosa Ketones Ql (U) Negative Normal NEGATIVE [facility] Comment on above: Performed By: #### U MICRO, ERUR, PREGU #### [facility] [address] [place] [address] Dr. María Sosa LEUKOCYTES Negative Normal NEGATIVE [facility] Comment on above: Performed By: #### U MICRO, ERUR, PREGU #### [facility] [address] [place] [address] Dr. María Sosa Nitrite Ql (U) Negative Normal NEGATIVE [facility] Comment on above: Performed By: #### U MICRO, ERUR, PREGU #### [facility] [address] [place] [address] Dr. María Sosa pH (U) 6.0 [pH] Normal 5-9 [facility] Comment on above: Performed By: #### U MICRO, ERUR, PREGU #### [facility] [address] [place] [address] Dr. María Sosa SPEC GRAVITY <=1.005 Abnormal 1.005-<=1.025 [facility] Comment on above: Performed By: #### U MICRO, ERUR, PREGU #### [facility] [address] [place] [address] Dr. María Sosa UA PROTEIN Negative Normal NEGATIVE/ TRACE [facility] Comment on above: Performed By: #### U MICRO, ERUR, PREGU #### [facility] [address] [place] [address] Dr. María Sosa UR MICRO IND INDICATED Normal [facility] Comment on above: Performed By: #### U MICRO, ERUR, PREGU #### [facility] [address] [place] [address] Dr. María Sosa Urobilinogen Qn (U) 0.2 {[place]'U}/dL Normal 0.2 - 1.0 [facility] Comment on above: Performed By: #### U MICRO, ERUR, PREGU #### [facility] [address] [place] [address] Dr. María Sosa URon 03-26-2022 , QUAL Negative Normal NEGATIVE [facility] Comment on above: Performed By: #### U MICRO, ERUR, PREGU #### [facility] [address] [place] [address] Dr. María Sosa PROF CHEM 8 (BAS METB)on Anion gap [Moles/Vol] 15.5 mmol/L Normal [facility] Comment on above: Performed By: #### B MP #### [facility] [address] [place] [address] Dr. María Sosa Calcium [Mass/Vol] 8.6 mg/dL Normal 8.5-10.1 [facility] Comment on above: Performed By: #### B MP #### [facility] [address] [place] [address] Dr. María Sosa Chloride [Moles/Vol] 107 mmol/L Normal 98-107 [facility] Comment on above: Performed By: #### B MP #### [facility] [address] [place] [address] Dr. María Sosa CO2 [Moles/Vol] 24.1 mmol/L Normal 21.0-32.0 [facility] Comment on above: Performed By: #### B MP #### [facility] [address] [address] [address] Mraía Sosa Creatinine [Mass/Vol] 0.67 mg/dL Normal 0.55-1.02 [facility] Comment on above: Performed By: #### B MP #### [facility] [address] [place] [address] Dr. María Sosa EGFR-AF UKRAINIAN >60 Normal >=60 [facility] Comment on above: Performed By: #### B MP #### [facility] [address] [place] [address] Dr. María Sosa EGFR-NON AF UKRAINIAN >60 Normal >=60 [facility] Comment on above: Performed By: #### B MP #### [facility] [address] [address] [address] María Sosa Glucose [Mass/Vol] 107 mg/dL Critically high 74-106 [facility] Comment on above: Performed By: #### B MP #### [facility] [address] [address] [address] María Sosa Potassium [Moles/Vol] 3.6 mmol/L Normal 3.5-5.1 [facility] Comment on above: Performed By: #### B MP #### [facility] [address] [address] [address] María Ssoa Sodium [Moles/Vol] 143 mmol/L Normal 136-145 [facility] Comment on above: Performed By: #### B MP #### [facility] [address] [address] [address] María Sosa Urea nitrogen [Mass/Vol] 11.0 mg/dL Normal 7.0-18.0 [facility] Comment on above: Performed By: #### B MP #### [facility] [address] [address] [address] María Sosa Urea nitrogen/Creatinin e [Mass ratio] 16.4 mg/mg Normal [facility] Comment on above: Performed By: #### B MP #### [facility] [address] [address] [address] María Sosa URINE MICROSCOPIC ONLYon BACTERIA NONE SEEN Normal NONE SEEN [facility] Comment on above: Performed By: #### U MICRO, ERUR, PREGU #### [facility] [address] [address] [address] María Sosa Bacteria identified Cx Nom (U) NOT INDICATED Normal [facility] Comment on above: Performed By: #### U MICRO, ERUR, PREGU #### [facility] [address] [address] [address] María Sosa CAST NONE SEEN Normal NONE SEEN [facility] Comment on above: Performed By: #### U MICRO, ERUR, PREGU #### [facility] [address] [address] [address] María Sosa Crystals LM Nom (Urine sed) NONE SEEN Normal NONE SEEN [facility] Comment on above: Performed By: #### U MICRO, ERUR, PREGU #### [facility] [address] [address] [address] María Sosa Epithelial cells LM Ql (Urine sed) FEW Abnormal NONE SEEN /RARE [facility] Comment on above: Performed By: #### U MICRO, ERUR, PREGU #### [facility] [address] [place] [address] Dr. María Sosa MUCOUS TRACE Abnormal NONE SEEN [facility] Comment on above: Performed By: #### U MICRO, ERUR, PREGU #### [facility] [address] [place] [address] Dr. María Sosa RBC 2-5 Abnormal 0-2 [facility] Comment on above: Performed By: #### U MICRO, ERUR, PREGU #### [facility] [address] [place] [address] Dr. María Sosa WBC NONE SEEN Normal NONE SEEN [facility] Comment on above: Performed By: #### U MICRO, ERUR, PREGU #### [facility] [address] [place] [address] Dr. María Sosa CT Abdomen/Pelvis w/ Contras [...] intra-abdominal changes. Report reported and signed by ANKUSH MALLOY on 03/24/2022 1733 Normal [facility] Specialist XR Knee Complete Left*on XR Knee [...] by ANKUSH MALLOY on 11/23/2021 1818 Normal [facility]ist PAP [id number] 07-08-2021 Cytology report Cyto stain Doc (Cvx/Vag) Note Invalid Interpretation Code [facility] Comment on above: Result Comment: TEST S RESULT FLAG UNITS REF RANGE LAB Clinician Provided Cytology Information Source.............Cervix No. of containers..01 ThinPrep Vial DIAGNOSIS: 01 NEGATIVE FOR INTRAEPITHELIAL LESION OR MALIGNANCY. Specimen adequacy: 01 Satisfactory for evaluation. Endocervical and/or squamous metaplastic cells (endocervical component) are present. Performed by: 01 Navin Whitfield Other Spatial Scientist (ASCP) . 01 Note: Note 01 The [...] <-Panic Low,>-Panic High,A-Abnormal,AA-Critical Abnormal Performed at: [address] [place] [address] Noelle Platt MD, Performed By: #### 1 [id number] #### [facility] [address] [place] [address] HPV 16+18+31+33+35+39+ 45+51+52+56+58+59+ 66+68 DNA Probe+sig amp Ql (Cvx) Negative Invalid Interpretation Code Negative [facility] Comment on above: Result Comment: This nucleic acid amplification test detects fourteen high-risk HPV types (16,18,31,33,35,39,45,51,52,56,58,59,66,68) without differentiation. Performed at: [facility] [id number] MD Giulia Drake Performed at: =[address] [id number] MD Giulia Drake Performed By: #### 1 [id number] #### [facility] [address] [place] [address] Coding Summary.on 07-07-2021 Coding Summary. CD:[id number] G h0bWw+PGhlYWQ+UG0KGOT xE84hkEIlcA6VN1zLTY2O BGGPBRZQEA9DZK1suZH0W XjyS6IuulGs DggqzXJnXC20ZLi1UFC7m AswYCokcF9niCIsW5e8Gl RvSW57aK55DNnjHRVpBaY 3LjZpbjsgbWFy C2xlOuPmoBUpKux+PHRhY mxlIHdpZHRoPScxMDAlJy QtzDsgBX5tIl5dSWEkCRU vbGxhcHNlOiBj k8zyCAYnHVwiNW7qjXbpY 2PvvJL2RGGno5f2Wr78eA I+ERSoXCV8zBisGRgrt58 8DbDto9trOEC1 hQYkLLstWVN8R64ot4U7I XEaKYYdGUV0eRE1nK1lwV dlelfiX2LrkYOyTeR1CIE 5zIJsnC7lyYob cfusuX0iChc+X11XKJ4QE JMSNO1SHbi5A7CxKqcbiU I+JY98SLIlCA75xIQtjVZ vt5eruKl1XaWb IKZgOKK4ePpkOMqbi1ZlJ AOwA61roEKok8C9OTQwzJ meaEMzPmGohJL1kX8cWBx igcffl5ojefcx Gtkla4gsle03xD64R23mB FrtFUOwBPD5HZKiNBOvjD ehhc4xqY5qRf2+ZRjpq9m ur9bhyMw7QbFh GJHjeiTfzHhbKTB2t2WyZ r58V3TzsKigb2VnXwt6ir 91gYSuh2O6rMF7SZxtYFI jgS7hGGudYiX1 KGVsKtShgE66nRShHHvgI u8coWeocBdtUU2kYTMmfn puYVYldS0bLFFmmXItlFj mQG5cYOWigcgy a957KsEaRQX7GYJloYImU 2RjsK1vZbHySQJgAQOdC2 UelOVyCKtmF708XDqiTfR 0UCPglqLpZ3Zy SSJurMvvOdP2l5T8Cx4Bc 7YwmplfIDF6UNslUDZ2Gc BmHcHaEbD2Q6AkYel2BCF qoHaaGJ4wD1Sz XZUqisscwthnvGB6UOGsP OOgxC48rDQlWCpzQx1zu5 Y7m427VVPuPUIjoO96Fv4 udDogMTBwdCBU oN6vbzbhh6zowsspAvSzV MYyGLi4RYw9MOIhoUjgEf AfYMA4EiM4ONQ9eDQjdA2 gxPkfbzcolU5i Oyc+I63mxV2xHAS3EFG3b bgyACTtivBoEA56SY58H7 RyPjwvdGFibGU+PGRpdiB zzSptKK4pCpTl y7uqh5NvEJxqX1HjMJBuW VooAru5GLTqPRZ8nGN0dQ 8lGLWzTMyky8X7fJR0Y1S aezOfbp0uo2xd RKTmUWocN72izSBxe5K1P CUetBC1BOSxaQpmEbZngG 93Oyc+BJNivFgtf9ZxQvg lw8vwj6nebBn6 KfGdPOCavgYaoEuyRLT2g 9FgAu43V45rLMmeSEBgXH NbOBKdZLJjqCwocz6smJ5 wIi8+PGNvbCB3 sXB7dY4cSUNdVdQ1EWycZ 429KtEtxFYdYjgcm5oqb7 gwrLc4IaMfMMKkguHvrRq rZDF1p2UyKt57 B77vRMfxNUExMEClVUTzH ZOtnEkkam0maB1gVw5+PC 4gb1awhz81mA41mOH+PHR tXAO8vXeiLPie EAKcsZ2pZZheCjT2ALBjS eDveX83kJBxJFjxEs7yaM taqWqtDC2gRZLelpuoz95 3WhSuf7iuRFLi xGRdQCvdVVS9V01gi4T4D YUtFRUtZSZ0tHQ2eI9gcK lnbjogbGVmdDsgdmVydGl xOMjtBIebQ711 IHRvcDsnPlBhdGllbnQgT aJfOKl6V7PbNhz1ICGgnN ulZD6omGLoPOzvIp7ixLt srAqdTA8eAFDq cptzl113QbDta0bzQVNtq LNzAQwyONF3H09ol0J4GG NdDMRkOFG6hDK6iT5mrUl nbjogbGVmdDsg pmLqcVenENtiTOtqZ812Z HRvcDsnPkJpcnRoIERhdG W4YX22RB70xQPwd4L8nKS 9A3UhUBDmpvwv lxqhcJA1BSSdLUTzoI03Q d7afJwaQn3tFXVxOHR5PZ KijQLeB5ArqH9rBbRyIYH eEJJwE9GkpXSt QJxlG401OXorOiC1OHHyx pEqP5TfDONcvPawVcW9i8 M0Us2BG9H9PP11EJ87iEM va4M3sXC7F2Xr MEPxuqnkehatnCU8QANaU ADhwD65Wz2xrNttUj4fJJ PkVNF7KZDrnPTnM1ZbpG2 yOiAjMDAwMDAw O1YocPYgCSipH176BVwjV eL8KYLfqyWdH0InHPJfdK djHgT7u2M7Le9GTKu7OL0 6LF17sVCxo3W3 zSN0R3KaFWFkfhjiixvjq LQ9XKKtKCLtvF84Cb4kmL ndNn6pMZJyICS3PKTgeHL zF0LtbL1lDdZm JTGrARBuB6SeuTByWDzbX 342HVbdQfI8LVIvcfPtD7 KxEHJfkUajBeS2h7L1Ob0 LGKKqIF72DTL7 hPE4XR64ZS11X0SfWmpmt GFibGU+PHRhYmxlIHdpZH RoPScxMDAlJyBzdHlsZT0 iAi1iEGXyYVUq dEhmtDEhLeIve3qlUQSrD NxkBV7gkJvlD5EjlKB8IK Foe4n2Mj98F23yJ7DzzTD +KCYvaNG4yOR4 dB5wSbBkXoH9FTrrX890Z iTmgHEsJkkvv8elh1qkcV c5XkY6UPSqagFgoJcdLRH 3h2KeGc32O62u IHdpZHRoPSIxNSUiIHZhb Tkcsl0pzP5vAb5+PGNvbC Y3mPO0gB9eGuFnZnQ6CQc zV082MsXxmBPg Kzama2qgz7qphZg5KaSqA SZsghLacTqnEMM8a2KyJb 14H6LzuWvmx8WqAnt6sn1 2fMHmc9W7lDW0 S9XiRNDpczqsmAUvsOqmF B2tFKNpfwqePZGveO7kCG CtN0o6FaRqFxC6EPjoU7J bipZ3YJMvdPDh TQokQQE8T18oy9Q9HLCrO GBwPRX8hJT3pG4pcXgidr ogbGVmdDsgdmVydGljYWw wQMkhU106LOSa lDpwABOnaW1tOOLxwZQiu SznVO6dDDFoavllEslUFR bGBkerBTKFELKFYS61ZB1 3hZIsu4O7iQF8 T5MmTNTyjbgacljdcDM5O HSrDASdbE49vYHuINigBx 4ei7Y2r509DYWqUJWepT4 1Vg1vtYjxUEAb wSARjU1yiwfyv0jkvtldI zKaAONxPLz8NFl5XEDvkP keEiWeEET2EjP6QXA3tCV fpP2kdSeisgfm gF1lPgk+LMJhXpAlWHo8R TwvdGQ+JASsODO9yKtfDP xtSSQuyY4pPANzQ9m5IcT eAaN0UMwjA3Lo BDIkrcynTm96fI0vLxJhD iT3AHurK6JplbQ2NDHnfA EhBKalKNA0S39hd2C7OVU vPEEvJIB1mJY8 uT8soUhtryvliIRsrLuea qJprQaqPKuoAQknV191QF RvcDsnPjMwIFllYXJzPC9 9PL74lMRfa1J8 wTL3I9RaMPQyptoqppxjv NY6LKYnVMCugU33wQByYG nvHn7yo1Q5s604SKThFZU ylJ35Ks3wuIft IEEwwODTgR8dpsyjo7qvg xnxSoTzKDVhDIu9DCq4AC YdlJnmDuSvYXS1FxL1ZSO 4dPSoiB8hsYey flmieZ9yVug+RmVtYWxlP N38LA48jTKia1I0wWA8P0 FhILOoojfhltfixHJ4AQD qXJGznI93qQVj CSizKt0gz9N9b631GFTsJ MHgcJ77Me5mbCseGIIpuO YXxQ3uckokz5czzajoPrL mMKLuTTz5JIa8 JIQlvAanXjCnWXR6DtI0U ZT9tAWuoI1enViajvznvM 9wOyc+YPVcWDDxp4Bmz2B xUQ11UV80W5Zt PjwvdGFibGU+PHRhYmxlI HdpZHRoPScxMDAlJyBzdH yjAF1aTo5xZXLpOQFgsGy bqMPkUtEzc6jy SVWwWEfuWS4oyCumW9Qmn SP7WHJlk5l1Gv96T97bU1 JvdXA+BBQudSM5fNQ2iE7 qMbBvMiA1JMwq C656MiNnjKQyUfgxo6iwv 8bkdMs4VlCqEPDbvyUqrJ peOHH9m6ZwGj33V37wMSa pZHRoPSIyMCUi KVKsxDcjpp4nmZ1qXy9+P VVfsBF7qPV6rS2pQrUlWu L2GBphW773TwEifLZdPwo wV38pL2YfgHA+ UFZfTjo4BMZnlJjsBA9oi TWxYNdsHz8bDWP7RdWoXx NgNHrxU2XnHDGecxyeuot yyFL4RKOjDNHr tN02Ig7esTyaVv3vEYGfE NJ6EXCbkAQiL0ZqhU5sIv GpXRZmEYQlE4SdtFUrYCm uF825RWdeRaX2 KLNoieDoM2QtQTCemMoxS yS6v9T0Gq8EuKebkYEiXX 3lYnAhOLm8P5XzBdd2QOE lrJikXC4uyAXy CAfyEy5psJdehOxdMN9nJ VJvtmock478OkNbj6lfOT PigEHvUKtvOBW4S42yw1H 7KTLuXCQzEXZ3 jRL0iD1ccEshnohicOMcn DsgdmVydGljYWwtYWxpZ2 21LABmqSfsJxZHMki7B8F tGqz2VNBljAxp AX8ouAWfIBqoAy6dgTcnv SfkLL4yKFGrwyqux443Vw Vtp6yiKRYmnFOzLBnsKLD 8O09qx8R3BFXw XHKpTCK2vUI4bY2cnUkcl jogbGVmdDsgdmVydGljYW tpSBdyO620QACfuTmuRa0 NFvq0Q3XnJzl8 ZOWqqXnwZN3dxWGfOVjjN o4mnXpejZtrWC1qXYWwpx elb689RyHnt5wrQQIhwRG nJIibBYZ9T57n x7N7SBIsJPVjFHU8pQH4q O1xtLozhcqymNNwmJdexk SfrTrhQRyuHQwvM007KII vcDsnPlBheWVy OjwvdGQ+JK59cc62K5MjF yhsBgq7PVVxUUU7bGT3cP 2xIZQeBZjti7Y3pVU3W8C senGqpt1fj9il YXBz (more content not included)... Normal [facility] PAP [id number] 07-01-2021 Gynecological Body Site CERVIX Normal [facility] Comment on above: Performed By: #### 1 [id number] #### [facility] [address] [place] [address] Physician Orderon 07-01-2021 Physician Order [id number]# 1.00CD:127 Normal [facility] Coding Summary.on 06-07-2021 Coding Summary. CD:[id number]:[id number] G h0bWw+PGhlYWQ+VU5AKRO yY42pfFKjbB8RB4zHVU3W AUCOPDMJEA4VQY0mnVO3F RwtV9GynqHy OeyqrTNeJF77XVa2SJV2e QpvNNmqcD4qwQMpI1e1Ku QiMY38cY39WBbtKMVvYkZ 3LjZpbjsgbWFy B4kgVwMqiGUlKvz+PHRhY mxlIHdpZHRoPScxMDAlJy PfpErfLU6wKn3cLGElHII vbGxhcHNlOiBj t8caBEYtWLuuWB5ifFjsB 3DzqGJ4HCQhh9l9Ow02fV I+AVFfDMM3zMinVYbxx40 1JxKmg2xjBYC2 hALzCDswUFO8A30tb5O3M HCdVAOiTJS2vBU0gJ1ykQ nspfkpS6GdsLXyVrC1RKP 5rLHobO1daWqa yquzsH1fZnh+Q60GYY4BR GKTGF1XNso1S6PjTuzotW I+TR52JGRvLN44jJOrpTP mb4pdzHb2ViLv RVCePPB2uQpsHLcdg6YuC VOyO93wkDFkk4K6DDCbnX lkwUDyRxUrfQZ6vU0hDLg vzgfpk6nlvihh Mejmm3qtul15eA08U44dD AvmAHQgBYY3LKWzYKYsrV znsb9owD8vVf0+SGbbq6r hy8cbxEl4EcYe VNBklwKacVylGFY7s4GoN n57F8SubMmxd3XzSax2ve 69wKRwo2T9lDL8LKzjEDB tmG7aWDtjUjZ7 HWMxDrZxwT58gUIdPPmjJ w8oaRuzwGyfEX9xNBJdhi kaFSVaqS3oPLCvwNHutCz fGS1mZBJfqnvz n550JoCuRKR1BMYipWGjP 5IdpE6oOkMeDVBgGKZzV0 YxbRNgMGqoD971YQfwSnA 9RTXxitUvS0Te CAVkrXomMrU5x4Q8Ec5Yq 4MlqqtlXGX4VYclAPH8Sj ZzImFeShJ9K1DoSfb0XYH fkNssRC7fO7Yi ICWyrxeqpvrffQT4IKTlG VNqxZ61wSXfKAqlUo2od8 B1o492OBYhOBBbgS99Kx5 udDogMTBwdCBU nD4josvzl0vqomusFxWsF EVmNVa2PCb2HHWnwPctYb QfMDH1YoL0SGY1iRJcnO0 opDbopixqwY0l Oyc+S78hpX6zXZD4HVD8i zcqUFKltrUtUK33KY00E3 RyPjwvdGFibGU+PGRpdiB geGgvXS4rQrRc z6kgj4HgGFmkV0DrOMBiL LkkMgf3JTHtPXU6vHP0xA 9sBREqWHdyj6S4sKT2K6L gsxFthe6de8zm CBUaUDlsO33dlQScv7D1N OJbdZF1HWDatMyiCkBqhG 93Oyc+TNCicLtmn7TrJqw so5nlz9zjkOc4 DjAaVDTvnyUtwPrlKWG1r 8HnBj25C38vDSnjDRYfJH MnWGFtDVUmzXtzxn0wdW0 wIi8+PGNvbCB3 pXF7jP4nZGEaSoX2CLvcL 012YuIjkRTtPrwzd8sro2 wrvBn4EyYbGGClhdVzhGv qITM5x3TpJx29 B10jZWqwFDKdKKTjTUOeW VDogZbmaa1jhH9wBy1+PC 5zf0dwpb28iK67rMN+PHR wRNG5aHmcOEyw JKYvgC1pHBeuSsR4JJXiM yFkwH20bXBxATyxBj7oaX gizJttRI7uCXCatonsr99 9VrTxg7mvHLRk fXKnJEmnSNX0E49rh3D3H IFhQNZlNUN5qFO1vX5gjV lnbjogbGVmdDsgdmVydGl nYZfvUFwpB382 IHRvcDsnPlBhdGllbnQgT vXoOSf3S9BnYlu9SHNuyV cjYI1ntAKwDHvcCt7xkMa ktLydWE5wQDHc ewtvq835YlFqq2tkGOWyw UZgFVlwICI9E70xp8W7OJ VpJRInKMS6xLA7xP4icEw nbjogbGVmdDsg ujDikBktTVaeXDgeZ371F HRvcDsnPkJpcnRoIERhdG Y1OX77FO47eCRrc7E7fLB 6Q2IbQMHcebwv giygwRS1ZUJhTBMuqR76N x0ueRsrUc0bNWHjSNU4ZI FcpPXbR0UnpK4zYcJxTTK oLXXzZ4DmlRLh CAbbL784SExzRqS5IKNil uFsX0QbHGMooJxpOjO3i3 D9Cf5SY1H2GL71KQ46iUC bl3V3eYM0K6Fb FXHrhvazmcohtGU4BLOyC ZDktA03Ew3nnNstVv2cTI SeVHO4CBAjtYZpW5MroH9 yOiAjMDAwMDAw N5AimMUmCAqwM907LQpuO qO8CJDzwnSnX8UxCPIuqV qmIjP6f6E5Bs1JZOw1SM8 5HN57tOZar4J2 mFO1S5AsRZQihhrqvvabf PE6XVZzITCptN99Cl3bqX fnJl8mDGVoQTB4VTMxdWH kU8InpR8aKrFt SPRsSDFsJ1PdyWOsANeeK 508BXdaMtJ7TIObjhKhT5 NmNSIcvIodWnF9a6A4Jj3 FGTMtBM00USX3 dKM4UH15JF47E9TmJzrwx GFibGU+PHRhYmxlIHdpZH RoPScxMDAlJyBzdHlsZT0 qJt3uHPNfNCQj jPptbAMrWcXbh7ncTCJiR XcuXI2nzJxaJ9FtrOV1IB Yle5i8Ss36A83vP2PvnOI +EGShnFC0cQG0 lV4uYeBhThO9DDsqE858A zLxzVBzZzcpn0szo6kqlB c9LrY8VELaozPjhRqhRBB 1c2KgNi44X37n IHdpZHRoPSIxNSUiIHZhb Tvrgn0oxM8bFj1+PGNvbC E8wEO0bU6eBiHnRgG9NVg hX533VjMpoNPt Quoqn7ese4udyTc6MbUmE GQyuqVaeLbaRBO2s5XmKc 28Q1CpfMezm3RlTar6yg6 0jGWly9E8oTM0 T2UmACPslazvrSJupPcpW L4gXSOurhlcGEMgyW0iDI GrJ6h3IyPoYxX2VHrzM6H wzvP8YGIlxSYz UOpiWTB2P71au5M9XQNeE OBnVAJ9tBB4pO7atEgrrb ogbGVmdDsgdmVydGljYWw qCUxjB766EPYl oIcdXZVbbS4hSSCfbGXbs GftQA0uXKNmadiuHhpIDV sBNghqTLQNBMBIBG61HG0 8aYDol3J6qMS0 T7SqSNBvwpjbjmogeEN4L HYcIEKcdZ65bXIoDXntBh [id number] 3Cn4cuYhjYYZs lQVYxU0yfgufk5efphkjU xNyCOQhBMg6FCw9NEAmoC ylZpLrZRG4ZjL0VFB6qZK qkH8dvOiilsso yL1sCqy+IQPuGhWkPIs1P TwvdGQ+CNSzYNM9iOuiRM onDYFclF8zEWEyN1q5ObK zEqN6KHtyO3Vk THCrjswxGx65vH8eDoJzA xC0YAtqC8UbixL0QETxhC DaMSryJMN0Z47dj1Y5FOT eOAImYKS7tCC3 sC4xuPvxenyhqWEhfHxpn xYvvDmaKTsbBKpsR339DF RvcDsnPjMwIFllYXJzPC9 9FY37dRQsl0D5 bQC0V6IoCNAiymukhftzr UJ1ARYfPQPylJ15fHOcEW nnLw0sd7Q5f366SIJjXVG lwE70Hh1fwNyt UOGneNWGbH4kkgfpu5kfn aafAkCuTVLrKJs8ZQz1DB LujCeaUvHeSTN1VmB7TDO 6tUSyqL6duBop bmelpV1qOdc+RmVtYWxlP Q39GY97gABrf7K5oFY1U8 KzLRNpebedfklvmQG7ASP wCYBibG65sSMn MFrzIg3rl6S8x744AKDsP MObiV64Zz3sgGeeZTTgtX KSeN4knveqq9skgswlUlD rTTYzSYk8NTi8 CHPwaHrfQcQgGCU4MkY4M JL7xRKihH4qqAnltcuzxV 9wOyc+MOFkBEUow3Ctr3Y eIY24GM94T6Pt PjwvdGFibGU+PHRhYmxlI HdpZHRoPScxMDAlJyBzdH msPZ4cZn6yTUSqVZTtiMm omRTjMkPhn1bl HXMdSOqbSC5trNikQ6Ylk ZI4MBJrl2a0Vx39B18vU4 JvdXA+LTNgfIY2lWK6qF7 iEzPoKcR4SMrm C888SdEzuJFgCftad6wbi 3mjsPw6TlMvEEYingXktO bwXOS6y9RoCy44O22kACa pZHRoPSIyMCUi OXTkxJonec2nfP5aQz4+P XMqhKR7mNT5xE3bFrHaZh L4XLuzF526OaVyhMVfUlg nI63lT6VfzFL+ EQKdMhi2GHSreDanRF5oq SGlZJmiMm7kJAM5GdAjIw LfCQwuZ4RmZYMdlbsxbdw hoLT9QVKcIZWl gA05Fd9huQgiXu0bIDSlG FA8FFOljAYtZ4PtpU1xMa JfMDYnFAGmU1IcgRQfBFc tR562SQkwGtK2 IMHxvwJfI5DtRQZanAfrJ cX5j3Y0By6ErYcenMGhSO 2zVgDzOHf0W9SgKwq4EGB skUffLL6bzCMr RLrbHc8flObekCtoHT1nN XKmpnmye487LwVun5azSJ GagCTbSTsbRDN9I57sj8M 6XTHcAZLfFYB7 vMT4lZ3kzBbkzsfztXPvq DsgdmVydGljYWwtYWxpZ2 62GEOvlYptArQNUxt2H9V vKyq3FRWxbSat EM7weFTpMTwmBq3ucYuhe FbpNM5fTHIkflabv431We Mwx6xxJHFbrINoGImcOYH 1R94qk0M0WTFr WGWvTFX6jGK2lO4dvKmrn jogbGVmdDsgdmVydGljYW ioDWryB047ROOlmYpeJf1 DXir9S4NjCes0 DVYuhXycSC6xfEOrTWczY t3giUpcoZnsIH7zEWMgle hzo641NrCct1blLPCemBV kDZrmUNX3L00x o2W6BVBuHKApYLE2oFZ0m G8qjKawppigtYMjsJggxw IpkVkhWQcuWWcmE747CLV vcDsnPlBheWVy OjwvdGQ+BL17pm89J4AlX bvyJty3DHCyLBV8zSB1qF 8yTTAmJLeie8J6kBR3D9S rktMkyq1rk5ck YXBz (more content not included)... Normal [facility] CSF Cell Counton 05-26-2021 Clarity (CSF) CLEAR Normal [facility] Comment on above: Performed By: #### 2 [id number] #### [facility] [address] [place] [address] Color (CSF) Colorless Normal [facility] Comment on above: Performed By: #### 2 [id number] #### [facility] [address] [place] [address] RBC Auto (CSF) [#/Vol] 12 High <=0 [facility] Comment on above: Performed By: #### 2 [id number] #### [facility] [address] [place] [address] Tube Num CSF 3 Invalid Interpretation Code [facility] Comment on above: Performed By: #### 2 [id number] #### [facility] [address] [place] [address] WBC CSF 4 cells/mcL Normal 0-5 [facility] Comment on above: Performed By: #### 2 [id number] #### [facility] [address] [place] [address] Clarity (CSF) CLEAR Normal [facility] Comment on above: Performed By: #### 2 [id number], [id number], [id number] #### [facility] [address] [place] [address] Color (CSF) Colorless Normal [facility] Comment on above: Performed By: #### 2 [id number], [id number], [id number] #### [facility] [address] [place] [address] RBC Auto (CSF) [#/Vol] 96 High <=0 [facility] Comment on above: Performed By: #### 2 [id number], [id number], [id number] #### [facility] [address] [place] [address] Tube Num CSF 1 Invalid Interpretation Code [facility] Comment on above: Performed By: #### 2 [id number], [id number], [id number] #### [facility] [address] [place] [address] WBC CSF 3 cells/mcL Normal 0-5 [facility] Comment on above: Performed By: #### 2 [id number], [id number], [id number] #### [facility] [address] [place] [address] CSF Glucoseon 05-26-2021 Glucose (CSF) [Mass/Vol] 58 mg/dL Normal 46-70 [facility] Comment on above: Performed By: #### 2 [id number], [id number], [id number] #### [facility] [address] [place] [address] CSF Proteinon 05-26-2021 Protein (CSF) [Mass/Vol] 21.0 mg/dL Normal 14.0-45.0 [facility] Comment on above: Performed By: #### 2 [id number], [id number], [id number] #### [facility] [address] [place] [address] Physician Orderon 05-26-2021 Physician Order [id number]# 1.00CD:127 Normal [facility] CBC AUTO DIFFon 05-06-2021 BASO # 0.1 103/ul Normal 0.0-0.1 [facility] Comment on above: Performed By: #### C BC #### [facility] [address] [place] [address] Dr. María Sosa Basophils/100 WBC (Bld) 0.7 % Normal 0.2-2.0 [facility] Comment on above: Performed By: #### C BC #### [facility] [address] [place] [address] Dr. María Sosa EO # 0.2 103/ul Normal 0.0-0.7 [facility] Comment on above: Performed By: #### C BC #### [facility] [address] [place] [address] Dr. María Sosa Eosinophils/100 WBC (Bld) 2.4 % Normal 0.9-7.0 [facility] Comment on above: Performed By: #### C BC #### [facility] [address] [place] [address] Dr. María Sosa Erythrocyte distribution width (RBC) [Ratio] 12.6 % Normal 11.0-15.0 [facility] Comment on above: Performed By: #### C BC #### [facility] [address] [place] [address] Dr. María Sosa Hematocrit (Bld) [Volume fraction] 40.2 % Normal 36.0-48.0 [facility] Comment on above: Performed By: #### C BC #### [facility] [address] [place] [address] Dr. María Sosa Hemoglobin (Bld) [Mass/Vol] 14.2 g/dL Normal 12.0-16.0 [facility] Comment on above: Performed By: #### C BC #### [facility] [address] [place] [address] Dr. María Sosa IG # 0.02 10e3/ul Normal 0.00-0.03 [facility] Comment on above: Performed By: #### C BC #### [facility] [address] [place] [address] Dr. María Sosa IG % 0.3 % Normal 0.0-0.5 [facility] Comment on above: Performed By: #### C BC #### [facility] [address] [place] [address] Dr. María Sosa LYMPH # 2.4 103/ul Normal 1.2-3.8 [facility] Comment on above: Performed By: #### C BC #### [facility] [address] [place] [address] Dr. María Sosa Lymphocytes/100 WBC (Bld) 34.4 % Normal 20.5-60.0 [facility] Comment on above: Performed By: #### C BC #### [facility] [address] [place] [address] Dr. María Sosa MANUAL DIFF REQ NO Normal [facility] Comment on above: Performed By: #### C BC #### [facility] [address] [place] [address] Dr. María Sosa MCH (RBC) [Entitic mass] 30.9 pg Normal 26.7-34.0 [facility] Comment on above: Performed By: #### C BC #### [facility] [address] [place] [address] Dr. María Sosa MCHC (RBC) [Mass/Vol] 35.3 g/dL Critically high 29.9-35.2 [facility] Comment on above: Performed By: #### C BC #### [facility] [address] [place] [address] Dr. María Sosa MCV (RBC) [Entitic vol] 87.4 fL Normal 81.0-99.0 [facility] Comment on above: Performed By: #### C BC #### [facility] [address] [place] [address] Dr. María Sosa MONO # 0.4 103/ul Normal 0.3-0.8 [facility] Comment on above: Performed By: #### C BC #### [facility] [address] [place] [address] Dr. María Sosa Monocytes/100 WBC (Bld) 5.9 % Normal 1.7-12.0 [facility] Comment on above: Performed By: #### C BC #### [facility] [address] [place] [address] Dr. María Sosa NEUT # 3.9 103/ul Normal 1.4-6.5 [facility] Comment on above: Performed By: #### C BC #### [facility] [address] [place] [address] Dr. María Sosa Neutrophils/100 WBC (Bld) 56.3 % Normal 43.0-75.0 [facility] Comment on above: Performed By: #### C BC #### [facility] [address] [place] [address] Dr. María Sosa Platelet mean volume (Bld) [Entitic vol] 9.5 fL Normal 9.5-13.5 [facility] Comment on above: Performed By: #### C BC #### [facility] [address] [place] [address] Dr. María Sosa PLT 325 103/ul Normal 150-450 [facility] Comment on above: Performed By: #### C BC #### [facility] [address] [place] [address] Dr. María Sosa RBC 4.60 106/ul Normal 4.20-5.40 [facility] Comment on above: Performed By: #### C BC #### [facility] [address] [place] [address] Dr. María Sosa WBC 7.0 103/ul Normal 4.0-11.0 [facility] Comment on above: Performed By: #### C BC #### [facility] [address] [place] [address] Dr. María Sosa PROTIMEon 05-06-2021 INR Coag (PPP) [Relative time] 1.00 {INR} Normal [facility] Comment on above: Performed By: #### P T, PTT #### [facility] [address] [place] [address] Dr. María Sosa INR GUIDELINES SEE BELOW Normal [facility] Comment on above: Result Comment: ARLETTE RED INR: 2.0 - 3.0 CONDITIONS NOT LISTED BELOW 2.5 - 3.5 FOR PROSTHETIC HEART VALVE REPLACEMENT 2.5 - 3.5 RECURRENT THROMBOSIS Performed By: #### P T, PTT #### [facility] [address] [address] [address] María Sosa PT Coag (PPP) [Time] 10.8 s Normal 9.0-11.6 [facility] Comment on above: Performed By: #### P T, PTT #### [facility] [address] [place] [address] Dr. María Sosa PTTon 05-06-2021 aPTT Coag (Bld) [Time] 28.7 s Normal 22.3-36.2 [facility] Comment on above: Performed By: #### P T, PTT #### [facility] [address] [place] [address] Dr. María Sosa MR cervical spine wo conon 0 03-18-2021 MR cervical spine wo con [facility] [place] [address] MRI Report Signed Patient: Zoe Goddard MR#: [id number] : 1990 Acct:[id number] Age/Sex: 31 / F ADM Date: 03/18/21 Loc: [facility] Room: Type: [facility] Attending Dr: Homero Erickson DO Ordering [...] Fitz Rapp M.D.03/18/2021 3:59 PM Dictation Location: [place] [address] Transcribed By: [facility] 03/18/21 1559 Dictated By: Fitz Rapp II, MD 03/18/21 1556 Signed By: 03/18/21 1559 [facility] Vital Signs Date Time Vital Sign Value Performing Clinician Whitley villalobos 04-10-2023 18:43-0500 Body height 165.1 cm Inga Taylor NP Work Phone: [facility] 04-10-2023 18:43-0500 Body mass index (BMI) [Ratio] 46.46 kg/m2 Inga Taylor NP Work Phone: [facility] 04-10-2023 18:43-0500 Body temperature 97.11 [degF] Inga Matsonjamari POULTRY PATHOLOGIST Work Phone: [facility] 04-10-2023 18:43-0500 Body weight 126.64 kg Inga Brandon POULTRY PATHOLOGIST Work Phone: [facility] 04-10-2023 18:43-0500 Diastolic blood pressure 76 mm[Hg] Inga Brandon POULTRY PATHOLOGIST Work Phone: [facility] 04-10-2023 18:43-0500 Heart rate 75 /min Inga Brandon POULTRY PATHOLOGIST Work Phone: [facility] 04-10-2023 18:43-0500 Respiratory rate 20 /min Inga Brandon POULTRY PATHOLOGIST Work Phone: [facility] 04-10-2023 18:43-0500 SaO2% (BldA) [Mass fraction] 98 % Inga Brandon POULTRY PATHOLOGIST Work Phone: [facility] 04-10-2023 18:43-0500 Systolic blood pressure 98 mm[Hg] Inga Huyenbecolinz POULTRY PATHOLOGIST Work Phone: [facility] Healthcare Encounters Encounter Date Encounter Type Care Provider Facility Start: 04-10-2023 End: 04-10-2023 ambulatory INGA TAYLOR Not Available Start: 04-10-2023 End: 04-10-2023 Office outpatient visit 25 minutes Inga Taylor POULTRY PATHOLOGIST Work Phone: [facility] Comment on above: Paresthesia of right upper extremity (Primary Dx); BMI 45.0-49.9, adult ([facility]) Start: 04-10-2023 Bamboo flowsheet Inga Taylor POULTRY PATHOLOGIST Work Phone: [facility] Start: 04-10-2023 Bamboo flowsheet Inga Taylor POULTRY PATHOLOGIST Work Phone: [facility] Start: 03-26-2022 End: 03-26-[address] ARIEL LARKIN Facility:[facility] Start: 05-06-2021 End: 05-07-2021 ambulatory STEVEFARSHAD BARTHOLOMEW Facility:[facility] Start: 07-31-2018 End: 08-01-2018 ambulatory REFERRED SELF Facility:[facility] Procedures Date Procedure Procedure Detail Performing Clinician Start: 08-01-2018 Therapeutic prophyla ctic/dx injection subq/im ROBIN Kay ELLEN Start: 07-31-2018 Emergency department patient visit LATRICIA AGUIRRE Start: 07-31-2018 Ther proph/dx njx iv push single/1st sbst/drug LATRICIA AGUIRRE Plan of Treatment Date Care Activity Detail Author Start: 05-01-2023 End: 05-01-2023 Patient encounter procedure 05/01/2023 6:40 PM EST Office Visit [facility] [address] [place] [phone] Inga Taylor, POULTRY PATHOLOGIST [address] [place] [phone] [facility] Start: 04-10-2023 End: 04-10-2023 Patient encounter procedure 04/10/2023 6:40 PM EST Office Visit [facility] [address] [place] [phone] Inga Taylor, POULTRY PATHOLOGIST [address] [place] [phone] [facility] on above: Arrived Start: 04-10-2023 End: 04-10-2024 XR Cervical spine 2 or 3 Views XR cervical spine 2 or 3 views Imaging Routine Paresthesia of right upper extremity Expected: 04/10/2023 (Approximate), Expires: 04/10/2024 [facility] Work Phone: Comment on above: Expected: 04/10/2023 (Approximate), Expires: 04/10/2024 Start: 04-10-2023 End: 04-10-2024 XR Shoulder - right 2 Views XR shoulder 2+ views right Imaging Routine Paresthesia of right upper extremity Expected: 04/10/2023 (Approximate), Expires: 04/10/2024 [facility] Comment on above: Expected: 04/10/2023 (Approximate), Expires: 04/10/2024 Payers Date Payer Category Payer Unknown BCBS BCBS xxxxxx [id number] 2021-Present [phone] [address] [place] [address] [id number] 1990 Unknown [id number] 1990 Unknown [id number] 1990 Unknown [id number] 1990 Unknown [id number] 1958 Unknown [id number] Unknown [id number] Social History Date Type Detail Facility Start: 08-16-2022 Tobacco smoking status WAIS Never sm oked tobacco [facility] Start: [...] Healthcare How often do you att end sikh or buddhism services? Patient refused [facility] Are you [...] illness Narrative Associated Problem(s): BMI 45.0-49.9, adult ([facility]) Consider Yolanda or Javier, pt will research [...] Hysteroscopy, Essure bilateral tubal ligation, IUD removal NE UPPER ARM/ELBOW SURGERY UNLISTED Procedure: Left arm [...] section and content) DATE CREATED AUTHOR 03/28/2021 [facility] DATE CREATED AUTHOR AUTHOR'S ORGANIZ ATION 05/12/2021 [facility] DATE CREATED AUTHOR AUTHOR'S ORGANIZ ATION 07/09/2021 [facility] DATE CREATED AUTHOR AUTHOR'S ORGANIZ ATION 03/25/2022 [facility] dical Specialist DATE CREATED AUTHOR AUTHOR'S ORGANIZ ATION 03/29/2022 [facility] DATE CREATED AUTHOR AUTHOR'S ORGANIZ ATION 04/12/2023 [facility] dical Specialists EPIC Care Teams (unrecognized sec tion and content) Management Aide Relationship Specialty Start Date End Date Unallocated, [facility] [address] [place], [place] [id number] PCP - General 08/16/22 Inga Taylor NP [address] [place] [address] Referring Physician Nurse Practitioner 08/16/22 Management Aide Relationship Specialty Start Date End Date Unallocated, [facility] Provider [address] [place] [address] PCP - General 08/16/22 Inga Taylor NP [address] [place] [address] Referring Physician Nurse Practitioner 08/16/22 [...] BE BASED ON THE PRIMARY CLINICAL RECORDS. [facility]. provides no warranty or guarantee of the accuracy or completeness of information in this document.
--- NOTE | 2023-04-24 07:57 | MR_ITS ---
The [address] [address] Patient Name: ZOE GROVE MRN: [facility]:[id number] date: 1990 Sex: F Assigned Patient Location: MRI Current Patient Location: MRI Accession/Order Number: [id number] Exam Date: 04/24/2023 08:19 Report Date: 04/24/2023 11:27 At the request of: CAROLINE MANCILLA Procedure: MR cervical spine wo con EXAMINATION: MR cervical spine wo con HISTORY: Abnormal Cervical X Ray R93.7 COMPARISON: 04/18/2023 TECHNIQUE: A variety of imaging planes and parameters were utilized for visualization of suspected pathology. FINDINGS: CRANIOCERVICAL AREA: Normal foramen magnum with no Chiari malformation. PARASPINAL AREA: Normal with no visible mass. BONES: Normal alignment with no acute fracture or spondylolisthesis CORD: Normal caliber, contour, and signal intensity. CERVICAL DISC LEVELS: C2-C3: No significant disc/facet abnormality, spinal stenosis, or foraminal stenosis. C3-C4: No significant disc/facet abnormality, spinal stenosis, or foraminal stenosis. C4-C5: Early degenerative disc disease is present without focal protrusion or neural impingement. C5-C6: Early degenerative disc disease is present without focal protrusion or neural impingement. C6-C7: No significant disc/facet abnormality, spinal stenosis, or foraminal stenosis. C7-T1:. No significant disc/facet abnormality, spinal stenosis, or foraminal stenosis. MR/MR cervical spine wo con IMPRESSION: Minimal degenerative changes C4-5 and C5-C6 Abnormality of the C6 vertebral body on plain film likely represents artifact Electronically authenticated by: JORGE LUIS COATES Date: 04/24/2023 11:27
== END 2023-04-24 07:53 | disposition home or self-care (01) ==
LOC: MRI 07:52
PROVIDERS: PCP Nurse Practitioner; Visit Provider Nurse Practitioner
DX: R93.7 Abnormal findings on diagnostic imaging of other parts of musculoskeletal system (principal); M50.321 Other cervical disc degeneration at C4-C5 level; M50.322 Other cervical disc degeneration at C5-C6 level
CPT/HCPCS: 72141